=== PATIENT | female | born 1945 | race Caucasian/White ===

== ENCOUNTER → 2017-12-18 08:57 | Outpatient (BNVA) | payer MEDICARE, SELFPAY | PROVIDERS: PCP Family Medicine; Visit Provider Orthopaedic Surgery | DX: M17.0 Bilateral primary osteoarthritis of knee (principal); E11.9 Type 2 diabetes mellitus without complications; Z79.84 Long term (current) use of oral hypoglycemic drugs; I10 Essential (primary) hypertension | CPT/HCPCS: 20610; 99211; 99213; J7325 ==

== ENCOUNTER 2018-03-28 02:12 | Outpatient (CLI) | payer MEDICARE, SELFPAY ==
[2018-03-28 10:52] LABS: Hemoglobin A1C 5.7 % (4.5-6.2)
[2018-03-28 10:53] LABS: ALT 24 U/L (12-78); AST 14 U/L (15-37); Albumin 3.4 g/dL (3.4-5.0); Alkaline Phosphatase 64 U/L (46-116); Anion Gap 8.1 mmol/L (3-11); BUN 15 mg/dL (7-18); Bilirubin, Total 0.3 mg/dL (0.2-1.0); CO2 25.9 mmol/L (21.0-32.0); CREATININE 0.77 mg/dL (0.55-1.02); Calcium 8.6 mg/dL (8.5-10.1); Chloride 109 mmol/L (98-107); Cholesterol 150 mg/dL (50-200); Glucose 96 mg/dL (70-100); HDL Cholesterol 47 mg/dL (40-60); LDL CHOLESTEROL 83 mg/dL (<100); Potassium 4.5 mmol/L (3.5-5.1); Sodium 143 mmol/L (136-145); Total Protein 6.3 g/dL (6.4-8.2); Triglyceride 116 mg/dL (30-150)
[2018-03-28 11:00] LABS: Abs Immature Grans 0.01 k/cumm (0.0-0.09); Absolute Basophil Count 0.02 k/cumm (0.0-0.2); Absolute Eosinophil Count 0.16 k/cumm (0.0-0.7); Absolute Lymphocyte Count 1.21 k/cumm (1.2-3.4); Absolute Monocyte Count 0.42 k/cumm (0.11-0.7); Absolute Neutrophil Count 3.18 k/cumm (1.2-6.7); Basophils % 0.4; Eosinophils % 3.2; HCT 37.5 % (36.0-46.0); HGB 12.1 g/dL (12.0-15.5); Immature Grans % 0.2; Lymphocytes % 24.2; Mean Corp. HGB Concentration 32.3 g/dL (32.0-36.0); Mean Corpuscular Hemoglobin 31.8 pg (27.0-33.0); Mean Corpuscular Volume 98.4 fL (80-95); Mean Platelet Volume 10.4 fL (8.0-11.0); Monocytes % 8.4; Neutrophils % 63.6; Platelet Count 225 x1000/uL (130-400); RBC 3.81 m/cumm (4.00-5.20); RBC Distribution Width 12.8 % (11.7-14.6)
[2018-03-28 13:36] LABS: COMMENT (LAB VIEW ONLY) 66.85 mg/dL; Microalb ug/mg Crea 15.1 ug/mg Cr
== END 2018-03-28 02:32 ==
PROVIDERS: PCP Family Medicine; Visit Provider Family Medicine
DX: E11.9 Type 2 diabetes mellitus without complications (principal); I10 Essential (primary) hypertension; E78.5 Hyperlipidemia, unspecified
CPT/HCPCS: 36415; 80053; 80061; 83721; 82043; 82570; 83036; 85025

== ENCOUNTER 2018-05-14 13:13 | Outpatient (REF) | payer MEDICARE, SELFPAY | END 2018-05-14 13:33 | LOC: LBN 13:13 | PROVIDERS: PCP Family Medicine; Visit Provider Family Medicine | DX: B08.4 Enteroviral vesicular stomatitis with exanthem (principal) | CPT/HCPCS: 87070; 87205 ==

== ENCOUNTER 2018-05-18 23:12 | Emergency (ER) | payer MEDICARE, SELFPAY ==
[2018-05-18 23:16] VITALS: BP 171/66; PULSE 54; RESP 16; TEMP 36.9; O2SAT 91
--- NOTE | 2018-05-18 23:43 | W.ED.GENAD ---
Discharge Plan Disposition Patient Disposition: HOME Condition: Good Discharge Details Chief Complaint: Recheck Clinical Impression: Encounter for wound re-check Primary Care Provider: Akhil London ED Provider: Emmanuel Ruth Meds and New Rx's Prescriptions: Continued Adult Probiotic 3 billion cell capsule 3,000 mmu cells PO DAILY RF: 0 lisinopril 20 mg tablet 20 mg PO BID Qty: 180 RF: 4 ranitidine HCl [Zantac Maximum Strength] 150 mg tablet 300 mg PO QPM Qty: 60 RF: 11 sertraline 50 mg tablet 50 mg PO DAILY Qty: 90 RF: 4 omeprazole 40 mg capsule,delayed release(DR/EC) 40 mg PO QAM Qty: 90 RF: 3 clindamycin HCl 150 mg capsule 150 mg PO TID Qty: 21 RF: 0 triamcinolone acetonide 15 GM cream 1 applic Topical BID PRN Qty: 15 RF: 1 topiramate 100 MG tablet 100 mg PO BID Qty: 180 RF: 3 levothyroxine 75 MCG tablet 75 mcg PO as directed Qty: 40 RF: 4 levothyroxine 88 MCG tablet 88 mcg PO as directed Qty: 70 RF: 4 Blood Glucose Test 1 EACH strip 1 ea Miscellaneous DAILY MDD 1 Qty: 100 RF: 12 lancets 1 EACH misc 1 ea Miscellaneous DAILY Qty: 100 RF: 12 levetiracetam 1,000 mg tablet 2,000 mg PO BID Qty: 360 RF: 3 metformin 500 mg tablet 500 mg PO BID Qty: 180 RF: 4 simvastatin 20 mg tablet 20 mg PO HS Qty: 90 RF: 4 Discharge Instructions Additional Instructions: Your wound looks well. It is not infected. It is healing appropriately. You do not need to continue packing unless you want to. Continue to clean twice a day and keep covered. Follow-up with primary care next week. Return if any problems. Referrals: Akhil London [Primary Care Provider] - Medical Decision Making Here for wound check. Everything looks fine. At this point would not even bother with packing. Dressing applied and patient discharged. HPI General Mode of arrival: ambulatory. Date/Time Provider Initiated Documentation: 05/18/18 23:23. Limitations to Documentation: no limitations. Information obtained by: patient. HPI Narrative: Patient here for wound check. Patient reports having an abscess in her buttocks drained by primary care earlier this week. She had a wound check Sunday. This morning and this evening there was some green discharge and bleeding and her daughter was concerned and had her come in for evaluation. She states that she is feeling well. It is not painful or bothering her. There has been no fever. Related Data Home Medications Medication Instructions Recorded Confirmed triamcinolone acetonide 1 applic TOPICAL BID PRN #15 gm 08/15/12 05/18/18 topiramate 100 mg PO BID #180 tab-cap 05/17/17 05/18/18 levothyroxine 75 mcg PO as directed #40 tab-cap 05/22/17 05/18/18 levothyroxine 88 mcg PO as directed #70 tab-cap 05/22/17 05/18/18 Blood Glucose Test #100 strip 06/11/17 05/17/18 lancets #100 ea 06/11/17 05/17/18 levetiracetam 1,000 mg tablet 2,000 mg PO BID #360 tab 01/31/18 05/18/18 metformin 500 mg tablet 500 mg PO BID #180 tab-cap 02/06/18 05/18/18 simvastatin 20 mg tablet 20 mg PO HS #90 tab-cap 02/06/18 05/18/18 lactobacillus combination no.8 3 3,000 mmu cells PO DAILY 03/26/18 05/18/18 billion cell capsule lisinopril 20 mg tablet 20 mg PO BID #180 tab-cap 03/26/18 05/18/18 omeprazole 40 mg capsule,delayed 40 mg PO QAM #90 tab-cap 03/26/18 05/18/18 release ranitidine 150 mg tablet 300 mg PO QPM #60 tab 03/26/18 05/18/18 sertraline 50 mg tablet 50 mg PO DAILY #90 tab-cap 03/26/18 05/18/18 clindamycin HCl 150 mg capsule 150 mg PO TID #21 cap 05/14/18 05/18/18 Previous Rx's Medication Instructions Recorded topiramate 100 mg PO BID #180 tab-cap 05/17/17 levothyroxine 75 mcg PO as directed #40 tab-cap 05/22/17 levothyroxine 88 mcg PO as directed #70 tab-cap 05/22/17 Blood Glucose Test #100 strip 06/11/17 lancets #100 ea 06/11/17 levetiracetam 1,000 mg tablet 2,000 mg PO BID #360 tab 01/31/18 metformin 500 mg tablet 500 mg PO BID #180 tab-cap 02/06/18 simvastatin 20 mg tablet 20 mg PO HS #90 tab-cap 02/06/18 lisinopril 20 mg tablet 20 mg PO BID #180 tab-cap 03/26/18 omeprazole 40 mg capsule,delayed 40 mg PO QAM #90 tab-cap 03/26/18 release ranitidine 150 mg tablet 300 mg PO QPM #60 tab 03/26/18 sertraline 50 mg tablet 50 mg PO DAILY #90 tab-cap 03/26/18 clindamycin HCl 150 mg capsule 150 mg PO TID #21 cap 05/14/18 Allergies Allergy/AdvReac Type Severity Reaction Status Date / Time codeine Allergy Mild HIVES Unverified 05/18/18 23:19 phenobarbital Allergy Mild itch/hives Unverified 05/18/18 23:19 Sulfa (Sulfonamide Allergy Mild HIVES Unverified 05/18/18 23:19 Antibiotics) General Stated Complaint: Recheck ANTONIA: 5 Review of Systems Constitutional Denies chills and Denies fever(s) Integumentary/Breasts Denies erythema and Reports wounds [facility] Medical History Absence seizure disorder Cataract Diabetes GERD (gastroesophageal reflux disease) Heart murmur, systolic Hx of breast cancer Hyperlipidemia Hypertension Hypertensive retinopathy Hypothyroidism Obesity Surgical History Breast, Mastectomy (~10/2006) EGD - IV Sedation EGD - MAC (12/04/16) Open Carpal Tunnel release (~06/2017) Trigger Finger release (09/21/15) Social History Smoking/Tobacco Use Status: Never Second Hand Exposure: Yes Alcohol Intake: never Drug use: Never Substance use type: does not use Caregiver/Support person: No Household members: children and other Details: Grandchildren Housing: house Pets and animals: Yes Pets and animals: other Details: Rabbit Sexually active: No Do you think of yourself as: straight/heterosexual Current gender identity: female What is your relationship status?: How often do you talk on the phone with friends or family?: three or more times per week How often do you get together with friends or relatives?: twice per week How often do you attend faith or yarsanism services?: decline to answer Do you belong to any clubs or organized social groups?: no Panel score (0-1 are the most socially isolated patients): 1 Frequency: does not exercise Christiana/Scientologist: Episcopal Special christiana needs: No Do you feel safe in your relationship?: Yes Exam Const General: cooperative and no acute distress Orientation: alert and oriented x3 Skin Other: Very small, less than half centimeter, shallow incision in the right upper buttock. There is no drainage. The tissue within the wound is completely clean. There is no sign of infection. Course Vital Signs Temperature 98.4 F 05/18/18 23:16 Pulse 54 L 05/18/18 23:16 Respiratory Rate 16 05/18/18 23:16 Blood Pressure 171/66 H 05/18/18 23:16 Pulse Oximetry 91 L 05/18/18 23:16 Temperature 98.4 F 05/18/18 23:16 Temperature Source Skin 05/18/18 23:16 Pulse 54 L 05/18/18 23:16 Respiratory Rate 16 05/18/18 23:16 Respiratory Effort Non-Labored 05/18/18 23:18 Blood Pressure 171/66 H 05/18/18 23:16 Pulse Oximetry 91 L 05/18/18 23:16 Oxygen Delivery Method Room Air 05/18/18 23:16 Oxygen Flow Rate 0 05/18/18 23:16 Pain Level 0 05/18/18 23:16
--- NOTE | 2018-05-18 23:59 | ED.GENADUL_ITS ---
Discharge Plan Disposition Patient Disposition: HOME Condition: Good Discharge Details Chief Complaint: Recheck Clinical Impression: Encounter for wound re-check Primary Care Provider: Akhil London ED Provider: Emmanuel Ruth Meds and New Rx's Prescriptions: Continued Adult Probiotic 3 billion cell capsule 3,000 mmu cells PO DAILY RF: 0 lisinopril 20 mg tablet 20 mg PO BID Qty: 180 RF: 4 ranitidine HCl [Zantac Maximum Strength] 150 mg tablet 300 mg PO QPM Qty: 60 RF: 11 sertraline 50 mg tablet 50 mg PO DAILY Qty: 90 RF: 4 omeprazole 40 mg capsule,delayed release(DR/EC) 40 mg PO QAM Qty: 90 RF: 3 clindamycin HCl 150 mg capsule 150 mg PO TID Qty: 21 RF: 0 triamcinolone acetonide 15 GM cream 1 applic Topical BID PRN Qty: 15 RF: 1 topiramate 100 MG tablet 100 mg PO BID Qty: 180 RF: 3 levothyroxine 75 MCG tablet 75 mcg PO as directed Qty: 40 RF: 4 levothyroxine 88 MCG tablet 88 mcg PO as directed Qty: 70 RF: 4 Blood Glucose Test 1 EACH strip 1 ea Miscellaneous DAILY MDD 1 Qty: 100 RF: 12 lancets 1 EACH misc 1 ea Miscellaneous DAILY Qty: 100 RF: 12 levetiracetam 1,000 mg tablet 2,000 mg PO BID Qty: 360 RF: 3 metformin 500 mg tablet 500 mg PO BID Qty: 180 RF: 4 simvastatin 20 mg tablet 20 mg PO HS Qty: 90 RF: 4 Discharge Instructions Additional Instructions: Your wound looks well. It is not infected. It is healing appropriately. You do not need to continue packing unless you want to. Continue to clean twice a day and keep covered. Follow-up with primary care next week. Return if any problems. Referrals: Akhil London [Primary Care Provider] - Medical Decision Making Here for wound check. Everything looks fine. At this point would not even bother with packing. Dressing applied and patient discharged. HPI General Mode of arrival: ambulatory . Date/Time Provider Initiated Documentation: 05/18/18 23:23 . Limitations to Documentation: no limitations . Information obtained by: patient . HPI Narrative: Patient here for wound check. Patient reports having an abscess in her buttocks drained by primary care earlier this week. She had a wound check Sunday. This morning and this evening there was some green discharge and bleeding and her daughter was concerned and had her come in for evaluation. She states that she is feeling well. It is not painful or bothering her. There has been no fever. Related Data Home Medications Medication Instructions Recorded Confirmed triamcinolone acetonide 1 applic TOPICAL BID PRN #15 gm 08/15/12 05/18/18 topiramate 100 mg PO BID #180 tab-cap 05/17/17 05/18/18 levothyroxine 75 mcg PO as directed #40 tab-cap 05/22/17 05/18/18 levothyroxine 88 mcg PO as directed #70 tab-cap 05/22/17 05/18/18 Blood Glucose Test #100 strip 06/11/17 05/17/18 lancets #100 ea 06/11/17 05/17/18 levetiracetam 1,000 mg tablet 2,000 mg PO BID #360 tab 01/31/18 05/18/18 metformin 500 mg tablet 500 mg PO BID #180 tab-cap 02/06/18 05/18/18 simvastatin 20 mg tablet 20 mg PO HS #90 tab-cap 02/06/18 05/18/18 lactobacillus combination no.8 3 3,000 mmu cells PO DAILY 03/26/18 05/18/18 billion cell capsule lisinopril 20 mg tablet 20 mg PO BID #180 tab-cap 03/26/18 05/18/18 omeprazole 40 mg capsule,delayed 40 mg PO QAM #90 tab-cap 03/26/18 05/18/18 release ranitidine 150 mg tablet 300 mg PO QPM #60 tab 03/26/18 05/18/18 sertraline 50 mg tablet 50 mg PO DAILY #90 tab-cap 03/26/18 05/18/18 clindamycin HCl 150 mg capsule 150 mg PO TID #21 cap 05/14/18 05/18/18 Previous Rx's Medication Instructions Recorded topiramate 100 mg PO BID #180 tab-cap 05/17/17 levothyroxine 75 mcg PO as directed #40 tab-cap 05/22/17 levothyroxine 88 mcg PO as directed #70 tab-cap 05/22/17 Blood Glucose Test #100 strip 06/11/17 lancets #100 ea 06/11/17 levetiracetam 1,000 mg tablet 2,000 mg PO BID #360 tab 01/31/18 metformin 500 mg tablet 500 mg PO BID #180 tab-cap 02/06/18 simvastatin 20 mg tablet 20 mg PO HS #90 tab-cap 02/06/18 lisinopril 20 mg tablet 20 mg PO BID #180 tab-cap 03/26/18 omeprazole 40 mg capsule,delayed 40 mg PO QAM #90 tab-cap 03/26/18 release ranitidine 150 mg tablet 300 mg PO QPM #60 tab 03/26/18 sertraline 50 mg tablet 50 mg PO DAILY #90 tab-cap 03/26/18 clindamycin HCl 150 mg capsule 150 mg PO TID #21 cap 05/14/18 Allergies Allergy/AdvReac Type Severity Reaction Status Date / Time codeine Allergy Mild HIVES Unverified 05/18/18 23:19 phenobarbital Allergy Mild itch/hives Unverified 05/18/18 23:19 Sulfa (Sulfonamide Allergy Mild HIVES Unverified 05/18/18 23:19 Antibiotics) General Stated Complaint: Recheck ANTONIA: 5 Review of Systems Constitutional Denies chills and Denies fever(s) Integumentary/Breasts Denies erythema and Reports wounds [facility] Medical History Absence seizure disorder Cataract Diabetes GERD (gastroesophageal reflux disease) Heart murmur, systolic Hx of breast cancer Hyperlipidemia Hypertension Hypertensive retinopathy Hypothyroidism Obesity Surgical History Breast, Mastectomy (~10/2006) EGD - IV Sedation EGD - MAC (12/04/16) Open Carpal Tunnel release (~06/2017) Trigger Finger release (09/21/15) Social History Smoking/Tobacco Use Status: Never Second Hand Exposure: Yes Alcohol Intake: never Drug use: Never Substance use type: does not use Caregiver/Support person: No Household members: children and other Details: Grandchildren Housing: house Pets and animals: Yes Pets and animals: other Details: Rabbit Sexually active: No Do you think of yourself as: straight/heterosexual Current gender identity: female What is your relationship status?: How often do you talk on the phone with friends or family?: three or more times per week How often do you get together with friends or relatives?: twice per week How often do you attend sabianism or jewish services?: decline to answer Do you belong to any clubs or organized social groups?: no Panel score (0-1 are the most socially isolated patients): 1 Frequency: does not exercise Christiana/Rastafari: Church Special christiana needs: No Do you feel safe in your relationship?: Yes Exam Const General: cooperative and no acute distress Orientation: alert and oriented x3 Skin Other: Very small, less than half centimeter, shallow incision in the right upper buttock. There is no drainage. The tissue within the wound is completely clean. There is no sign of infection. Course Vital Signs Temperature 98.4 F 05/18/18 23:16 Pulse 54 L 05/18/18 23:16 Respiratory Rate 16 05/18/18 23:16 Blood Pressure 171/66 H 05/18/18 23:16 Pulse Oximetry 91 L 05/18/18 23:16 Temperature 98.4 F 05/18/18 23:16 Temperature Source Skin 05/18/18 23:16 Pulse 54 L 05/18/18 23:16 Respiratory Rate 16 05/18/18 23:16 Respiratory Effort Non-Labored 05/18/18 23:18 Blood Pressure 171/66 H 05/18/18 23:16 Pulse Oximetry 91 L 05/18/18 23:16 Oxygen Delivery Method Room Air 05/18/18 23:16 Oxygen Flow Rate 0 05/18/18 23:16 Pain Level 0 05/18/18 23:16
== END 2018-05-18 23:52 | disposition home or self-care (01) ==
LOC: ER 23:49
PROVIDERS: Emergency Provider Emergency Medicine; PCP Family Medicine
DX: L02.31 Cutaneous abscess of buttock (principal); I10 Essential (primary) hypertension; E11.9 Type 2 diabetes mellitus without complications; Z79.84 Long term (current) use of oral hypoglycemic drugs
CPT/HCPCS: 99281

== ENCOUNTER → 2018-06-18 09:33 | Outpatient (BNVA) | payer MEDICARE, SELFPAY | PROVIDERS: PCP Family Medicine; Referring Provider Family Medicine; Visit Provider Orthopaedic Surgery | DX: M17.11 Unilateral primary osteoarthritis, right knee (principal); M17.12 Unilateral primary osteoarthritis, left knee; G56.02 Carpal tunnel syndrome, left upper limb; I10 Essential (primary) hypertension | CPT/HCPCS: 20610; 99211; 99212; J7325 ==

== ENCOUNTER → 2018-08-21 12:05 | Outpatient (BNVA) | payer MEDICARE, SELFPAY | PROVIDERS: PCP Family Medicine; Visit Provider Psychiatry & Neurology Neurology | DX: G40.109 Localization-related (focal) (partial) symptomatic epilepsy and epileptic syndromes with simple partial seizures, not intractable, without status epilepticus (principal); I10 Essential (primary) hypertension; E11.9 Type 2 diabetes mellitus without complications; Z79.84 Long term (current) use of oral hypoglycemic drugs | CPT/HCPCS: 99213 ==

== ENCOUNTER 2018-08-27 11:47 | Day surgery (SDC) | payer MEDICARE, SELFPAY ==
[2018-08-27 12:20] VITALS: BP 122/64; PULSE 57; RESP 16; TEMP 36.4; O2SAT 99
[2018-08-27] MEDS: Lidocaine 2% Multi-Dose 50 ML VIAL (12:50)
--- NOTE | 2018-08-27 13:31 | PDOC.DSDIS_ITS ---
Discharge Plan Disposition Patient Disposition: HOME Condition: Improving Discharge Details Reason For Visit: (L) CTS Attending Provider: Almas Laws Primary Care Provider: Akhil London Home Meds and New Rx's Prescriptions: New hydrocodone-acetaminophen 5-325 mg Tablet 1 - 2 tab PO Q4H PRN PRN (Reason: Pain) Qty: 18 RF: 0 No Action Adult Probiotic 3 billion cell capsule 3,000 mmu cells PO DAILY RF: 0 lisinopril 20 mg tablet 20 mg PO BID Qty: 180 RF: 4 ranitidine HCl [Zantac Maximum Strength] 150 mg tablet 300 mg PO QPM Qty: 60 RF: 11 sertraline 50 mg tablet 50 mg PO DAILY Qty: 90 RF: 4 omeprazole 40 mg capsule,delayed release(DR/EC) 40 mg PO QAM Qty: 90 RF: 3 triamcinolone acetonide 15 GM cream 1 applic Topical BID PRN Qty: 15 RF: 1 (DME) Blood Glucose Test 1 EACH strip 1 ea Miscellaneous DAILY MDD 1 Qty: 100 RF: 12 (DME) lancets 1 EACH misc 1 ea Miscellaneous DAILY Qty: 100 RF: 12 levetiracetam 1,000 mg tablet 2,000 mg PO BID Qty: 360 RF: 3 metformin 500 mg tablet 500 mg PO BID Qty: 180 RF: 4 simvastatin 20 mg tablet 20 mg PO HS Qty: 90 RF: 4 levothyroxine 88 mcg tablet 88 mcg PO as directed Qty: 70 RF: 4 levothyroxine 75 mcg tablet 75 mcg PO as directed Qty: 40 RF: 4 topiramate 100 mg tablet 100 mg PO BID Qty: 180 RF: 3 Discharge Instructions Additional Instructions: Keep your left hand elevated above heart level as much as possible for the next 48-72 hours. Exercise your fingers and thumb as comfort allows. You may loosen the wrist splint and/or the underlying lorene bandage if they feel too tight. Expect some bloody drainage on the underlying gauze bandages. Use a plastic bag to cover the splint and forearm for showering tomorrow. On , 08/29/18, you may remove all of your bandages and get your incision wet in the shower with soap and water. Gently pat the stitches dry and cover them with gauze or extra- large bandaids. Continue to use your hand as comfort allows. You may go without your wrist splint after , 08/29/18 if you are comfortable. Take your regular medications as before. Take tylenol or ibuprofen for milder pain. Tylenol may be taken at the same time as ibuproben as they are metabolized ddifferently and are not cross toxic. Take norco (hydrocodone 5/325mg 1-2 every 4 hours for more serious pain. Follow-up with Dr. Laws in 1 week for stitch removal. Stand Alone Forms: Eneida Bond (DSU) Equipment/Supplies: Brace Activity:: Elevate Remove Dressings/Wound Care:: 48 hours Shower/Bathe:: 48 hours Diet:: As Tolerated Discharge Orders Discharge Orders: Discharge Order (Routine); Ordered 08/27/18 Ordered By: Almas Laws DS: Diagnosis Discharge Diagnosis (1) Carpal tunnel syndrome of left wrist: Status: Acute
--- NOTE | 2018-08-27 14:27 | ROE_ITS ---
DATE OF PROCEDURE: August 27, 2018 PREOPERATIVE DIAGNOSIS: Chronic left carpal tunnel syndrome. POSTOPERATIVE DIAGNOSIS: Same. PROCEDURE: Left open carpal tunnel release. SURGEON: Almas Laws M.D. FITTER'S ASSISTANT: Dann. ANESTHETIC: 2% Lidocaine plain. PREP: ChloraPrep. INDICATIONS: This patient has had symptoms of bilateral carpal tunnel syndrome. She underwent succe ssful right open carpal tunnel release. She returns now to have the left side treated. I reviewed w ith the patient in the Day Surgery holding area the planned procedure, which she was well-versed in. She consented and wished to proceed. I used a skin marker to tono her left forearm. PROCEDURE: The patient was taken to the procedure room. Sterile drapes were applied after her left upper extremity was prepped with ChloraPrep. A time-out was instituted to verify the patient's diagn osis, treatment and allergies. 2% Lidocaine was then used to create an anesthetic wheal along the co urse of the universal carpal tunnel incision. This was an incision that began in the distal forearm, curved across the wrist flexion crease in an oblique angle, and then followed the ring finger ray. After ensuring adequate anesthesia, a #15 scalpel blade was utilized to expose the carpal tunnel. Lo upe magnification was used throughout the procedure. Hemostasis was controlled with direct pressure. After incising through the skin and underlying subcutaneous tissues, the palmar fascia was identifi ed. Heiss retractors were inserted. Under direct vision the transverse carpal ligament was incised after first incising through the palmar fascia. A complete release was done from the distal extent o f the antebrachial fascia to the distal extent of the transverse carpal ligament. Care was taken to avoid any injury to the arterial arcade. The patient was then asked to flex and extend her fingers a nd there was no evidence of any loose bodies, foreign bodies or encumbrances on the median nerve. Th e median nerve itself had a characteristic hourglass constriction in the mid portion of the transvers e carpal ligament where it was making contact with it. The wound was then irrigated. The skin was c losed with sutures of #5-0 Ethilon alternating simple sutures with [id number] retention suture s. Sterile bandages were applied. These consisted of Xeroform gauze 4x4's, 3-inch conforming gauze bandage, followed by a 3-brooks REAGAN wrap and a commercial wrist immobilizer. The patient was taken to the recovery room in satisfactory condition, tolerating the procedure well.
== END 2018-08-27 14:05 | disposition home or self-care (01) ==
PROVIDERS: PCP Family Medicine; Visit Provider Orthopaedic Surgery
PROC: (CPT 64721; principal; 2018-08-27 12:30)
DX: G56.02 Carpal tunnel syndrome, left upper limb (principal)
CPT/HCPCS: 64721; L3908

== ENCOUNTER → 2018-09-04 07:40 | Outpatient (BNVA) | payer MEDICARE, SELFPAY | PROVIDERS: PCP Family Medicine; Referring Provider Family Medicine; Visit Provider Orthopaedic Surgery | DX: Z47.89 Encounter for other orthopedic aftercare (principal); Z87.39 Personal history of other diseases of the musculoskeletal system and connective tissue; I10 Essential (primary) hypertension; E11.9 Type 2 diabetes mellitus without complications ==

== ENCOUNTER 2018-10-02 01:45 | Outpatient (CLI) | payer MEDICARE, SELFPAY ==
[2018-10-02 12:55] LABS: BUN 10 mg/dL (7-18); CREATININE 0.74 mg/dL (0.55-1.02); Calcium 8.4 mg/dL (8.5-10.1); Chloride 109 mmol/L (98-107); Glucose 107 mg/dL (70-100); Potassium 3.9 mmol/L (3.5-5.1); Sodium 144 mmol/L (136-145)
[2018-10-02 13:36] LABS: Hemoglobin A1C 5.4 % (4.5-6.2)
== END 2018-10-02 02:05 ==
PROVIDERS: PCP Family Medicine; Visit Provider Family Medicine
DX: E11.9 Type 2 diabetes mellitus without complications (principal)
CPT/HCPCS: 36415; 80048; 83036

== ENCOUNTER → 2019-01-13 10:54 | Outpatient (BNVA) | payer MEDICARE, SELFPAY | PROVIDERS: PCP Family Medicine; Referring Provider Family Medicine; Visit Provider Student in an Organized Health Care Education/Training Program | DX: M17.11 Unilateral primary osteoarthritis, right knee (principal); M17.12 Unilateral primary osteoarthritis, left knee; M65.321 Trigger finger, right index finger; I10 Essential (primary) hypertension; E11.319 Type 2 diabetes mellitus with unspecified diabetic retinopathy without macular edema; Z79.84 Long term (current) use of oral hypoglycemic drugs | CPT/HCPCS: 20610; 99213; J7325 ==

== ENCOUNTER 2019-02-03 19:42 | Outpatient (REF) | payer MEDICARE, SELFPAY ==
[2019-02-03 19:25] LABS: Bilirubin Negative (Negative); Blood Trace-intact (Negative); Clarity Cloudy (Clear); Glucose Negative (Negative); Ketones Negative (Negative); Leukocyte Esterase Moderate (Negative); Nitrite Negative (Negative)
[2019-02-03 19:37] LABS: Bacteria Many HPF (Negative); C & S Indicated? C&S Done As Ordered; Casts Negative LPF (Negative); Crystals Negative HPF (Negative); Epithelial Cells Moderate HPF (Negative); Mucus Negative (Negative); RBC >50 HPF (0-2); WBC >50 HPF (0-5)
== END 2019-02-03 20:02 ==
LOC: LBN 19:42
PROVIDERS: PCP Family Medicine; Visit Provider Family Medicine
DX: R39.15 Urgency of urination (principal)
CPT/HCPCS: 87077; 81003; 81015; 87086; 87186

== ENCOUNTER 2019-03-31 03:34 | Outpatient (CLI) | payer MEDICARE, SELFPAY ==
[2019-03-31 11:24] LABS: ALT 17 U/L (14-59); AST 15 U/L (15-37); Albumin 3.7 g/dL (3.4-5.0); Alkaline Phosphatase 62 U/L (46-116); Anion Gap 10.4 mmol/L (3-11); BUN 14 mg/dL (7-18); Bilirubin, Total 0.4 mg/dL (0.2-1.0); CO2 24.6 mmol/L (21.0-32.0); CREATININE 0.61 mg/dL (0.55-1.02); Calcium 8.5 mg/dL (8.5-10.1); Chloride 108 mmol/L (98-107); Glucose 94 mg/dL (74-106); Potassium 3.9 mmol/L (3.5-5.1); Sodium 143 mmol/L (136-145); Total Protein 6.3 g/dL (6.4-8.2); Vitamin B12 520 pg/mL (193-986)
[2019-03-31 12:23] LABS: TSH 0.15 uIU/mL (0.36-3.74)
[2019-03-31 12:59] LABS: Hemoglobin A1C 5.7 % (3.8-5.6)
== END 2019-03-31 03:54 ==
PROVIDERS: PCP Family Medicine; Visit Provider Family Medicine
DX: E03.9 Hypothyroidism, unspecified (principal); E11.9 Type 2 diabetes mellitus without complications; E87.1 Hypo-osmolality and hyponatremia
CPT/HCPCS: 36415; 80053; 82607; 83036; 84443

== ENCOUNTER 2019-04-11 01:57 | Outpatient (CLI) | payer MEDICARE, SELFPAY ==
[2019-04-11 11:09] LABS: TSH 0.24 uIU/mL (0.36-3.74)
== END 2019-04-11 02:17 ==
PROVIDERS: PCP Family Medicine; Visit Provider Family Medicine
DX: E03.9 Hypothyroidism, unspecified (principal)
CPT/HCPCS: 36415; 84443

== ENCOUNTER 2019-04-17 01:45 | Outpatient (CLI) | payer MEDICARE, SELFPAY ==
--- NOTE | 2019-04-17 12:51 | DI.MAMMO_ITS ---
EXAM: MG MAMMO SCREENING 60 MIN DUR CLINICAL HISTORY: PERSONAL H/O MALIGNANT NEOPLASM OF BREAST,BREAST CA SCREENING,Z85.3, Z12.31 TECHNIQUE: Bilateral full field digital CC and MLO mammographic images were obtained with 3D tomosyn thesis and utilizing computer aided detection (CAD). COMPARISON: Available for comparison. FINDINGS: Masses/Architectural Distortion: None seen. Microcalcifications: No suspicious pleomorphic-type are seen. Skin Thickening/Nipple Retraction: None. IMPRESSION: 1. No significant interval change with no specific features of malignancy noted. 2. Unless there is more urgent need, screening mammography is recommended, as per [place] [employer] guidelines. BI-RADS Cat 1 - Negative Breast Density - Category B - Scattered areas of fibroglandular density A negative radiographic report should not delay biopsy if a dominant or clinically suspicious mass is present. Up to ten percent of cancers are not identified on mammography. A negative report may reinforce clinical impression. Adenosis and dense breasts may obscure an underlying neoplasm. False positive reports average 6 to 10%. Patient will receive a letter notifying them of these results.
== END 2019-04-17 02:05 ==
PROVIDERS: PCP Family Medicine; Visit Provider Family Medicine
DX: Z12.31 Encounter for screening mammogram for malignant neoplasm of breast (principal); Z85.3 Personal history of malignant neoplasm of breast
CPT/HCPCS: 77063; 77067

== ENCOUNTER → 2019-07-14 08:19 | Outpatient (BNVA) | payer MEDICARE, SELFPAY | PROVIDERS: PCP Family Medicine; Referring Provider Family Medicine; Visit Provider Student in an Organized Health Care Education/Training Program | DX: M17.0 Bilateral primary osteoarthritis of knee (principal) | CPT/HCPCS: 99212; 99213 ==

== ENCOUNTER 2019-08-01 03:56 | Outpatient (CLI) | payer MEDICARE, SELFPAY ==
[2019-08-01 11:36] LABS: Hemoglobin A1C 5.8 % (3.8-5.6)
[2019-08-01 11:40] LABS: TSH 1.83 uIU/mL (0.36-3.74)
== END 2019-08-01 04:16 ==
PROVIDERS: PCP Family Medicine; Visit Provider Family Medicine
DX: E11.9 Type 2 diabetes mellitus without complications (principal); E87.1 Hypo-osmolality and hyponatremia
CPT/HCPCS: 36415; 83036; 84443

== ENCOUNTER → 2019-08-28 14:49 | Outpatient (BNVA) | payer MEDICARE, SELFPAY | PROVIDERS: PCP Family Medicine; Referring Provider Family Medicine; Visit Provider Psychiatry & Neurology Neurology | DX: G40.109 Localization-related (focal) (partial) symptomatic epilepsy and epileptic syndromes with simple partial seizures, not intractable, without status epilepticus (principal); H35.033 Hypertensive retinopathy, bilateral; I10 Essential (primary) hypertension; E11.319 Type 2 diabetes mellitus with unspecified diabetic retinopathy without macular edema; Z79.84 Long term (current) use of oral hypoglycemic drugs | CPT/HCPCS: 99213 ==

== ENCOUNTER → 2020-08-26 11:08 | Outpatient (BNVA) | payer MEDICARE, SELFPAY | PROVIDERS: PCP Nurse Practitioner Family; Referring Provider Family Medicine; Visit Provider Psychiatry & Neurology Neurology | DX: G40.109 Localization-related (focal) (partial) symptomatic epilepsy and epileptic syndromes with simple partial seizures, not intractable, without status epilepticus (principal); I10 Essential (primary) hypertension; E78.5 Hyperlipidemia, unspecified; E11.9 Type 2 diabetes mellitus without complications; K21.9 Gastro-esophageal reflux disease without esophagitis; E03.9 Hypothyroidism, unspecified; Z85.3 Personal history of malignant neoplasm of breast | CPT/HCPCS: 99212 ==

== ENCOUNTER 2021-02-15 03:22 | Outpatient (CLI) | payer MEDICARE, SELFPAY ==
[2021-02-15 08:54] LABS: TSH (W/Ref FT4) 0.88 uIU/mL (0.36-3.74)
[2021-02-15 10:00] LABS: Calculated LDL 99 mg/dL (<100); Cholesterol 176 mg/dL (<200); HDL Cholesterol 55 mg/dL (40-60); Triglyceride 113 mg/dL (<150)
== END 2021-02-15 03:23 | disposition home or self-care (01) ==
LOC: LBO 03:23
PROVIDERS: PCP Nurse Practitioner Family; Visit Provider Nurse Practitioner Family
DX: E78.5 Hyperlipidemia, unspecified; E03.9 Hypothyroidism, unspecified
CPT/HCPCS: 36415; 80061; 84443

== ENCOUNTER → 2021-08-23 11:12 | Outpatient (BNVA) | payer MEDICARE, SELFPAY | PROVIDERS: PCP Nurse Practitioner Family; Referring Provider Nurse Practitioner Family; Visit Provider Psychiatry & Neurology Neurology | DX: E11.9 Type 2 diabetes mellitus without complications (principal); Z79.84 Long term (current) use of oral hypoglycemic drugs; I10 Essential (primary) hypertension; G40.109 Localization-related (focal) (partial) symptomatic epilepsy and epileptic syndromes with simple partial seizures, not intractable, without status epilepticus | CPT/HCPCS: 99213 ==

== ENCOUNTER 2021-09-12 09:46 | Day surgery (SDC) | payer MEDICARE, SELFPAY ==
[2021-09-12 10:18] VITALS: BP 129/62; PULSE 57; RESP 14; TEMP 36.5; O2SAT 99
[2021-09-12] MEDS: Tropicam./Phenyleph. (1/2.5%) 5 ML BTL OS ×3 (10:18→10:28)
--- NOTE | 2021-09-12 10:43 | W.ANESPRE ---
General Info Date of Service Date Performed: 09/12/21 Height: 5 ft 2 in Weight: 70.1 kg Body Mass Index (BMI): 28.3 Surgical Procedure: Operation Date: 09/12/21 12:40 Proposed Procedure Side Surgeon p Cataract Extraction with IOL Implant Left Jc Anthony MD Meds Allergies and Home Medications Allergies Allergy/AdvReac Type Severity Reaction Status Date / Time codeine Allergy Mild HIVES Verified 09/12/21 10:01 phenobarbital Allergy Mild itch/hives Verified 09/12/21 10:01 Sulfa (Sulfonamide Allergy Mild HIVES Verified 09/12/21 10:01 Antibiotics) Home Medication Medication Instructions Recorded blood sugar diagnostic (Accu-Chek #10 ea 09/08/20 Tracy Plus test strips) blood-glucose meter (Accu-Chek #1 ea 09/08/20 Tracy Plus Meter) lancets (Accu-Chek Softclix #100 ea 09/08/20 Lancets) lisinopril 20 mg tablet 20 mg PO DAILY #180 tab-caps 09/15/20 omeprazole 40 mg capsule,delayed 40 mg PO QAM #90 tab-caps 02/09/21 release sertraline 50 mg tablet 50 mg PO DAILY #90 tab-caps 02/09/21 simvastatin 20 mg tablet 20 mg PO HS #90 tab-caps 02/09/21 levothyroxine 50 mcg tablet 50 mcg PO .QOD #45 tabs 04/14/21 levothyroxine 75 mcg tablet 75 mcg PO .qod #45 tab-caps 04/14/21 metformin 500 mg tablet,extended 500 mg PO QPM #90 tabs 06/22/21 release 24 hr topiramate 100 mg tablet See Rx Instructions .Route 07/12/21 .COMPLEX #180 tabs levetiracetam 1,000 mg tablet See Rx Instructions .Route 08/01/21 .COMPLEX #360 tabs Current Visit Medications: Current Medications Generic Name Dose Route Start Last Admin Trade Name Freq PRN Reason Stop Dose Admin Acetaminophen 1,000 mg 09/12/21 06:00 Acetaminophen 500 Mg Tab PO Q4H PRN PRN Miscellaneous Medication 0 ml 09/12/21 06:00 Prednisolone 1%, Moxifloxacin 0.5%, Nepafenac 0.1% 5ml Btl OS DIRECTED SADIE Miscellaneous Medication 0 ml 09/12/21 06:00 09/12/21 10:28 Tropicam./Phenyleph. (1/2.5%) 5 Ml Btl OS 1 drp DIRECTED SADIE Administration Tetracaine HCl 0 ml 09/12/21 06:00 Tetracaine 0.5% 4 Ml Btl OS DIRECTED SADIE PFSH Active Problems Active Problems: Problem Status Onset Code Hyponatremia E87.1 Seizure disorder G40.909 Postprandial abdominal bloating R14.0 Hypokalemia, gastrointestinal losses E87.6 Hypokalemia E87.6 Hypomagnesemia E83.42 Sleep apnea G47.30 Focal epilepsy with impairment of consciousness 06/01/16 G40.109 Heart murmur, systolic 01/20/14 Hypertensive retinopathy of both eyes 10/05/16 H35.033 Malignant neoplasm of female breast 07/12/06 C50.919 Mild cataract of right eye 10/05/16 H26.9 Obesity E66.9 Unspecified dental caries K02.9 Vaginal cyst 08/02/17 N89.8 Primary osteoarthritis of both knees M17.0 Restless legs syndrome (RLS) G25.81 Irritable colon K58.9 Diabetic retinopathy ~09/22/19 E11.319 Cystocele without uterine prolapse N81.10 Diabetes mellitus E11.9 Hyperlipidemia E78.5 Medical History Medical History Carpal tunnel syndrome of left wrist Surgically repaired. Right trigger finger Surgical repair. Medical History Comments:: BP on right side only Surgical History Surgical History Breast, Mastectomy (~10/2006) LEFT EGD - IV Sedation 2014 EGD - MAC (12/04/16) Open Carpal Tunnel release (~06/2017) RIGHT/ Status post carpal tunnel release Status post left mastectomy Per pt. able to use left arm Status post trigger finger release Trigger Finger release (09/21/15) RIGHT THUMB/DR. SCOTT Tobacco Smoking/Tobacco Use Status: Never Passive smoking exposure: Yes Second hand exposure: Yes Alcohol Alcohol Intake: never Substance Use Substance use: Never Substance use type: does not use Vital Signs and Lab Results Vital Signs Most Recent Vital Signs in EMR: Most Recent Vital Signs Temp Pulse Resp BP Pulse Ox 36.5 C 57 L 14 129/62 99 09/12/21 10:18 09/12/21 10:18 09/12/21 10:18 09/12/21 10:18 09/12/21 10:18 Point of Care Results Point of Care Results: Finger Stick Blood Glucose 105 09/12/21 10:25 Lab Results Blood Type / Crossmatch: No Data to Display Complete Blood Count: No Data to Display Complete Metabolic Panel: No Data to Display Liver Function Panel: No Data to Display Coagulation Panel: No Data to Display Cardiac Panel: No Data to Display Arterial Blood Gas: No Data to Display Venous Blood Gas: No Data to Display Pancreas Panel: No Data to Display Thyroid Panel: No Data to Display Infectious Disease: No Data to Display Blood Cultures: No Data to Display Toxicology Panel: No Data to Display Imaging and Studies Imaging and Studies Study information below may be from another EMR and interpreted by another provider. Please see original notes in EMR for more complete details. Echocardiogram Summary: Summary: 1. Left ventricle: The cavity size was normal. Wall thickness was normal. Systolic function was normal. The estimated ejection fraction was 65-70%. Wall motion was normal; there were no regional wall motion abnormalities. 2. Aortic valve: There was no stenosis. Mean gradient: 8.5mm Hg (S). Peak velocity ratio of LVOT to aortic valve: 0.63. 3. Mitral valve: Mild regurgitation. 4. Right ventricle: The cavity size was normal. Wall thickness was normal. Systolic function was normal. 5. Pulmonary arteries: Pulmonary systolic pressure was in the range of 20mm Hg to 30mm Hg. 06/04/14 Anesthesia Assessment and Plan Anesthesia History Personal History: No History of Anesthesia Complications Family History: No Family History of Anesthesia Complications Exercise Tolerance Exercise Tolerance: Metabolic Equivalents<4 Pertinent Negatives Pertinent Negatives: No Symptoms of GERD (Well controlled with meds), No Major Cardiovascular Symptoms or Complaints, No Major Pulmonary Symptoms or Complaints and No History of CVA/TIA Cardiac & Pulmonary Exam Cardiac Exam: Normal S1/S2 Heart Sounds Pulmonary Exam: Clear Bilateral Breath Sounds Implantable Cardiac Device Does patient have a Pacemaker or an ICD?: No Airway Exam Known Difficult Airway: No Mallampati Class: 2 Mouth Opening: Normal (> 3cm) Thyromental Distance: Greater than 3 cm Neck Range of Motion: Full ROM Neck Circumference: Normal Teeth Condition: Generalized Poor Dentition (Minimal teeth. None loose per patient. ) ASA Classification ASA Score: ASA 3 Emergency Case?: No NPO Status NPO Status: NPO Clears >2 hours, Solids >8 hours Anesthesia Plan Resuscitation Status: Full Code Anesthesia Technique: MAC Anesthesia Airway Planned: Natural Airway Monitors Used: Standard Monitors Preoperative Comments:: Hx of petit mall seizures, none for years.
[2021-09-12 10:47] VITALS: BMI 28.3
[2021-09-12] MEDS: Tetracaine 0.5% 4 ML BTL OS (11:18)
[2021-09-12] MEDS: Balanced Salt Soln.-PLUS 500 ML BAG (11:20)
[2021-09-12] MEDS: Duovisc Viscoelastic System EACH 1 EACH (11:21)
[2021-09-12] MEDS: Lidocaine 1% Pres-Free 5 ML VIAL (11:23)
[2021-09-12] MEDS: Lidocaine 2% Jelly 6 ML SYR (11:24)
[2021-09-12] MEDS: Povidone-Iodine Ophth 30 ML BTL (11:26)
[2021-09-12 11:38] VITALS: BP 161/72; PULSE 57; RESP 16; TEMP 36; O2SAT 100
--- NOTE | 2021-09-12 11:39 | W.PM.DSUDISC ---
Discharge Plan Disposition Patient Disposition: HOME Condition: Good Discharge Details Attending Provider: Jc Anthony Primary Care Provider: Aldo Kenney Home Meds and New Rx's Prescriptions: No Action (DME) blood-glucose meter [Accu-Chek Tracy Plus Meter] Misc See Rx Instructions .ROUTE .MEDSUPPLY Qty: 1 0RF Rx Instructions: As directed (DME) Accu-Chek Tracy Plus test strp Strip See Rx Instructions .ROUTE .MEDSUPPLY Qty: 10 0RF Rx Instructions: Daily (DME) lancets [Accu-Chek Softclix Lancets] Misc See Rx Instructions .ROUTE .MEDSUPPLY Qty: 100 0RF Rx Instructions: Daily lisinopril 20 mg tablet 20 mg PO DAILY Qty: 180 4RF omeprazole 40 mg capsule,delayed release(DR/EC) 40 mg PO QAM Qty: 90 3RF sertraline 50 mg tablet 50 mg PO DAILY Qty: 90 4RF Rx Instructions: 1 TAB DAILY simvastatin 20 mg tablet 20 mg PO HS Qty: 90 4RF Rx Instructions: 1 TAB HS levothyroxine 75 mcg tablet 75 mcg PO .qod Qty: 45 3RF Rx Instructions: 75 mcg alternating with 50 mcg levothyroxine. levothyroxine 50 mcg tablet 50 mcg PO .QOD Qty: 45 3RF Rx Instructions: Levothyroxine 75 mcg alternating with 50 mcg daily. Patient currently taking 75 mcg daily-this is a dosage change. metformin 500 mg tablet extended release 24 hr 500 mg PO QPM Qty: 90 0RF topiramate 100 mg tablet See Rx Instructions .ROUTE .COMPLEX Qty: 180 3RF Dose Instruction: TAKE ONE TABLET BY MOUTH TWICE A DAY Rx Instructions: TAKE ONE TABLET BY MOUTH TWICE A DAY levetiracetam 1,000 mg tablet See Rx Instructions .ROUTE .COMPLEX Qty: 360 3RF Dose Instruction: TAKE TWO TABLETS BY MOUTH TWICE A DAY Rx Instructions: TAKE TWO TABLETS BY MOUTH TWICE A DAY Discharge Instructions Stand Alone Forms: Post-op Topical Cataract, Press Ganey (DSU) Discharge Orders Discharge Orders: Discharge Order (Routine); Ordered 09/12/21 Ordered By: Jc Anthony DS: Diagnosis Discharge Diagnosis (1) Nuclear sclerotic cataract of left eye: Status: Resolved (2) Posterior subcapsular age-related cataract of left eye: Status: Resolved
--- NOTE | 2021-09-12 11:41 | W.PM.OP ---
Date of service: 09/12/21 Time of Service: 11:42 Operative Note Operative Note DATE OF PROCEDURE: 09/12/21 PRE-OP DIAGNOSIS: Nuclear/posterior subcapsular cataract, left eye POST-OP DIAGNOSIS: same PROCEDURE: Cataract extraction using phacoemulsification with intraocular lens implant, left eye SURGEON: Jc Anthony ANESTHESIA TYPE: Local By Surgeon and MAC Refer to Anesthesia Record PATHOLOGY: none sent COMPLICATIONS: None Patient was transported to: same day Patient's condition: stable Implants: Manuel [employer] Manuel / [employer] Tecnis [id number] Indications: Progressive decreased vision due to cataract, left eye Procedure Description: CATARACT SURGERY OPERATIVE REPORT PREOPERATIVE DIAGNOSIS: 1. Nuclear/posterior subcapsular cataract, left eye POSTOPERATIVE DIAGNOSIS: Same OPERATION: 1. Cataract extraction using phacoemulsification with posterior chamber intraocular lens implant, left eye. IOL: IOL Can Coverer/Model: Manuel & Manuel / PRAVEENA Tecnis [id number] IOL Power: + 14.5 diopters IOL Serial Number: [id number] Optic Diameter: 6.0 mm Haptic/Overall Diameter: 13.0 mm PHACO INFO: Tucker [employer] Technologiesurion Vision System with OZil and Active Fluidics Cumulative Dispersed Energy (CDE): 13.87 seconds SURGEON: Jc Anthony MD, IHSAN ANESTHESIA: Monitored A [facility] (MAC), with local sub-tenon's anesthetic infiltration COMPLICATIONS: None SPECIMENS: None INDICATIONS FOR PROCEDURE: The patient is a 76-year-old lady with history of myopia who has developed a symptomatic nuclear/posterior subcapsular cataract in the left eye. The option of cataract surgery was offered to the patient and she felt she was symptomatic enough that she wished to proceed. PROCEDURE: The correct surgical eye was identified and marked as the left eye and the pupil was dilated in the preoperative area using mydriatics and cycloplegics. The dilated pupil size was 7.0 mm. The patient elected to proceed without oral sedation. The patient was brought to the operating room where cardiopulmonary monitoring was instituted and surgical time-out was performed, confirming the correct operative eye and IOL power. Topical anesthesia was administered and ophthalmic povidone-iodine 5% was instilled into the conjunctival fornices. Lidocaine gel was applied to the cornea and the micky-ocular area was prepped with Betadine 10% solution and draped in the usual sterile fashion for intraocular surgery, including an aperture drape. A Tegaderm transparent film dressing was cut in half and used to cover the lashes and lid margins. Care was taken to sequester the lashes and lid margins under the Tegaderm dressing. A lid speculum was placed between the lids of the operative eye and the Tucker Lux[employer] Revalia operating microscope was maneuvered into position. Julio scissors were then used to make a conjunctival buttonhole approximately 6mm posterior to the limbus in the inferonasal quadrant. Blunt dissection was carried out to expose bare sclera, and a blunt-tipped sub-tenon?s anesthesia cannula was introduced and passed posteriorly along the globe where non-preserved plain lidocaine was injected into posterior sub-Tenon?s space. A sideport knife was used to make a paracentesis port superiorly/superiortemporally. Intraocular phenylephrine/lidocaine was injected int the anterior chamber.. The anterior chamber was filled with viscoelastic. A keratome knife was used to construct a 2-plane near-clear corneal tunnel extending 2.0mm into clear cornea temporally. A flap was raised on the anterior capsule and capsulorhexis forceps were used to complete a continuous curvilinear capsulorhexis of 5.0 mm. Moderate zonular laxity was noted. Balanced salt solution was then used to perform cortical cleaving hydrodissection and nuclear hydrodelineation until the lens could be freely rotated within the capsular bag. The lens nucleus was then disassembled and removed within the capsular bag and iris plane using phacoemulsification. Residual cortical material was removed using the 45-degree angled silicone I/A tip with 0.3mm port. The posterior capsule was carefully polished to remove as much residual lens epithelial cells as safely possible. The capsular bag was then inflated and the anterior chamber deepened with viscoelastic. The lens implant described above was inserted into the capsular bag using the PRAVEENA [place] Injector. A Kuglen hook was used to dial the IOL into position. Residual viscoelastic was then removed first from posterior to the IOL, then from the anterior chamber using the I/A handpiece. The lens implant was noted to center nicely within the capsular bag. The incisions were stromally hydrated, and the anterior chamber was reformed using BSS. Then 0.5cc of moxifloxacin 1.0mg/ml were injected into the capsular bag and anterior chamber. The incisions were checked with a Weck spear and found to be secure. Several drops of ophthalmic povidone-iodine 5% were then applied to the eye followed by two drops of Imprimis combination prednisolone/moxifloxacin/nepafenac solution. The drapes were removed and a clear plastic protective eye shield was placed over the eye. The patient was then returned to Same Day Surgery in stable condition.
--- NOTE | 2021-09-12 12:02 | W.ANESPOSTOP ---
Postoperative Evaluation Date, Time and Location Date Performed: 09/12/21 Time Performed: 12:03 Patient Location: Day Surgery Unit Vital Signs Most Recent Imported Vital Signs: Most Recent Vital Signs Temp Pulse Resp BP Pulse Ox 36 C L 57 L 16 161/72 H 100 09/12/21 11:38 09/12/21 11:38 09/12/21 11:38 09/12/21 11:38 09/12/21 11:38 Pain Score Most Recent Pain Score: Most Recent Pain Score Pain Level 0 09/12/21 11:38 Assessment Mental Status: Awake (Alert & Oriented to Patient Baseline) Airway and Respiratory Function: Patent airway with normal (patient baseline) respiratory exam Cardiovascular Function: Hemodynamically Stable Hydration Status: Adequately Hydrated Nausea & Vomiting: No Nausea or Vomiting Pain: Pt. Denies Any Pain Peripheral Nerve Block: Patient did not receive a nerve block
== END 2021-09-12 12:03 | disposition home or self-care (01) ==
LOC: SUR 09:46
PROVIDERS: PCP Nurse Practitioner Family; Visit Provider Ophthalmology
PROC: (CPT 66984; principal; 2021-09-12 12:30)
DX: H25.042 Posterior subcapsular polar age-related cataract, left eye (principal); I10 Essential (primary) hypertension; G25.81 Restless legs syndrome; K21.9 Gastro-esophageal reflux disease without esophagitis; G40.909 Epilepsy, unspecified, not intractable, without status epilepticus; E11.9 Type 2 diabetes mellitus without complications; E03.9 Hypothyroidism, unspecified
CPT/HCPCS: 66984; V2632

== ENCOUNTER 2021-09-26 08:46 | Day surgery (SDC) | payer MEDICARE, SELFPAY ==
[2021-09-26 08:51] VITALS: BP 146/66; PULSE 55; RESP 16; TEMP 36.2; O2SAT 100
[2021-09-26] MEDS: Tropicam./Phenyleph. (1/2.5%) 5 ML BTL OD ×3 (09:07→09:21)
--- NOTE | 2021-09-26 09:32 | W.ANESPRE ---
General Info Date of Service Date Performed: 09/26/21 Height: 5 ft 1 in Weight: 70.874 kg Body Mass Index (BMI): 29.5 Surgical Procedure: Operation Date: 09/26/21 11:40 Proposed Procedure Side Surgeon p Cataract Extraction with IOL Implant Right Jc Anthony MD Meds Allergies and Home Medications Allergies Allergy/AdvReac Type Severity Reaction Status Date / Time codeine Allergy Mild HIVES Verified 09/26/21 08:57 phenobarbital Allergy Mild itch/hives Verified 09/26/21 08:57 Sulfa (Sulfonamide Allergy Mild HIVES Verified 09/26/21 08:57 Antibiotics) Home Medication Medication Instructions Recorded blood sugar diagnostic (Accu-Chek #10 ea 09/08/20 Tracy Plus test strips) blood-glucose meter (Accu-Chek #1 ea 09/08/20 Tracy Plus Meter) lancets (Accu-Chek Softclix #100 ea 09/08/20 Lancets) lisinopril 20 mg tablet 20 mg PO DAILY #180 tab-caps 09/15/20 omeprazole 40 mg capsule,delayed 40 mg PO QAM #90 tab-caps 02/09/21 release sertraline 50 mg tablet 50 mg PO DAILY #90 tab-caps 02/09/21 simvastatin 20 mg tablet 20 mg PO HS #90 tab-caps 02/09/21 levothyroxine 50 mcg tablet 50 mcg PO .QOD #45 tabs 04/14/21 levothyroxine 75 mcg tablet 75 mcg PO .qod #45 tab-caps 04/14/21 metformin 500 mg tablet,extended 500 mg PO QPM #90 tabs 06/22/21 release 24 hr topiramate 100 mg tablet See Rx Instructions .Route 07/12/21 .COMPLEX #180 tabs levetiracetam 1,000 mg tablet See Rx Instructions .Route 08/01/21 .COMPLEX #360 tabs Current Visit Medications: Current Medications Generic Name Dose Route Start Last Admin Trade Name Freq PRN Reason Stop Dose Admin Acetaminophen 1,000 mg 09/26/21 06:00 Acetaminophen 500 Mg Tab PO Q4H PRN PRN Miscellaneous Medication 0 ml 09/26/21 06:00 Prednisolone 1%, Moxifloxacin 0.5%, Nepafenac 0.1% 5ml Btl OD DIRECTED SADIE Miscellaneous Medication 0 ml 09/26/21 06:00 09/26/21 09:21 Tropicam./Phenyleph. (1/2.5%) 5 Ml Btl OD 1 drp DIRECTED SADIE Administration Tetracaine HCl 0 ml 09/26/21 06:00 Tetracaine 0.5% 4 Ml Btl OD DIRECTED SADIE PFSH Active Problems Active Problems: Problem Status Onset Code Posterior subcapsular age-related cataract, right eye H25.041 Nuclear sclerotic cataract of right eye H25.11 Essential hypertension I10 Posterior subcapsular age-related cataract of left eye H25.042 Nuclear sclerotic cataract of left eye H25.12 Hyponatremia E87.1 Seizure disorder G40.909 Postprandial abdominal bloating R14.0 Hypokalemia, gastrointestinal losses E87.6 Hypokalemia E87.6 Hypomagnesemia E83.42 Sleep apnea G47.30 Focal epilepsy with impairment of consciousness 06/01/16 G40.109 Heart murmur, systolic 01/20/14 Hypertensive retinopathy of both eyes 10/05/16 H35.033 Malignant neoplasm of female breast 07/12/06 C50.919 Mild cataract of right eye 10/05/16 H26.9 Obesity E66.9 Unspecified dental caries K02.9 Vaginal cyst 08/02/17 N89.8 Primary osteoarthritis of both knees M17.0 Restless legs syndrome (RLS) G25.81 Irritable colon K58.9 Diabetic retinopathy ~09/22/19 E11.319 Cystocele without uterine prolapse N81.10 Diabetes mellitus E11.9 Hyperlipidemia E78.5 Medical History Medical History Carpal tunnel syndrome of left wrist Surgically repaired. Right trigger finger Surgical repair. Medical History Comments:: BP on right side only Surgical History Surgical History Breast, Mastectomy (~10/2006) LEFT EGD - IV Sedation 2014 EGD - MAC (12/04/16) Open Carpal Tunnel release (~06/2017) RIGHT/ Status post carpal tunnel release Status post left mastectomy Per pt. able to use left arm Status post trigger finger release Trigger Finger release (08/09/16) RIGHT THUMB/DR. SCOTT Tobacco Smoking/Tobacco Use Status: Never Passive smoking exposure: Yes Second hand exposure: Yes Alcohol Alcohol Intake: never Substance Use Substance use: Never Substance use type: does not use Vital Signs and Lab Results Vital Signs Most Recent Vital Signs in EMR: Most Recent Vital Signs Temp Pulse Resp BP Pulse Ox 36.2 C L 55 L 16 146/66 H 100 09/26/21 08:51 09/26/21 08:51 09/26/21 08:51 09/26/21 08:51 09/26/21 08:51 Lab Results Blood Type / Crossmatch: No Data to Display Complete Blood Count: No Data to Display Complete Metabolic Panel: No Data to Display Liver Function Panel: No Data to Display Coagulation Panel: No Data to Display Cardiac Panel: No Data to Display Arterial Blood Gas: No Data to Display Venous Blood Gas: No Data to Display Pancreas Panel: No Data to Display Thyroid Panel: No Data to Display Infectious Disease: No Data to Display Blood Cultures: No Data to Display Toxicology Panel: No Data to Display Imaging and Studies Imaging and Studies Study information below may be from another EMR and interpreted by another provider. Please see original notes in EMR for more complete details. Echocardiogram Summary: Summary: 1. Left ventricle: The cavity size was normal. Wall thickness was normal. Systolic function was normal. The estimated ejection fraction was 65-70%. Wall motion was normal; there were no regional wall motion abnormalities. 2. Aortic valve: There was no stenosis. Mean gradient: 8.5mm Hg (S). Peak velocity ratio of LVOT to aortic valve: 0.63. 3. Mitral valve: Mild regurgitation. 4. Right ventricle: The cavity size was normal. Wall thickness was normal. Systolic function was normal. 5. Pulmonary arteries: Pulmonary systolic pressure was in the range of 20mm Hg to 30mm Hg. 06/04/14 Anesthesia Assessment and Plan Anesthesia History Personal History: No History of Anesthesia Complications Family History: No Family History of Anesthesia Complications Exercise Tolerance Exercise Tolerance: Metabolic Equivalents<4 Pertinent Negatives Pertinent Negatives: No Symptoms of GERD (Rx. Meds) Cardiac & Pulmonary Exam Cardiac Exam: Normal S1/S2 Heart Sounds Pulmonary Exam: Clear Bilateral Breath Sounds Implantable Cardiac Device Does patient have a Pacemaker or an ICD?: No Airway Exam Known Difficult Airway: No Mallampati Class: 2 Mouth Opening: Normal (> 3cm) Thyromental Distance: Greater than 3 cm Neck Range of Motion: Full ROM Neck Circumference: Normal Teeth Condition: Generalized Poor Dentition (Minimal teeth. None loose per patient. ) ASA Classification ASA Score: ASA 3 Emergency Case?: No NPO Status NPO Status: NPO Clears >2 hours, Solids >8 hours Anesthesia Plan Resuscitation Status: Full Code Anesthesia Technique: MAC Anesthesia Airway Planned: Natural Airway Monitors Used: Standard Monitors
[2021-09-26 09:36] VITALS: BMI 29.5
[2021-09-26] MEDS: Tetracaine 0.5% 4 ML BTL OD (09:56)
[2021-09-26] MEDS: Povidone-Iodine Ophth 30 ML BTL (09:57)
[2021-09-26] MEDS: Lidocaine 2% Jelly 6 ML SYR (09:58)
[2021-09-26] MEDS: Balanced Salt Soln.-PLUS 500 ML BAG (10:01)
[2021-09-26] MEDS: Lidocaine 1% Pres-Free 5 ML VIAL (10:02)
[2021-09-26 10:23] VITALS: BP 142/66; PULSE 55; RESP 18; TEMP 36.2; O2SAT 100
--- NOTE | 2021-09-26 10:23 | ROE_ITS ---
Date of service: 09/26/21 Time of Service: 10:23 Operative Note Operative Note DATE OF PROCEDURE: 09/26/21 PRE-OP DIAGNOSIS: Nuclear/posterior subcapsular cataract, right eye POST-OP DIAGNOSIS: same PROCEDURE: Cataract extraction using phacoemulsification with intraocular lens implant, right eye SURGEON: Jc Anthony ANESTHESIA TYPE: Local By Surgeon and MAC Refer to Anesthesia Record ESTIMATED BLOOD LOSS: 0 PATHOLOGY: none sent COMPLICATIONS: None Patient was transported to: same day Patient's condition: stable Implants: Manuel & Manuel/PRAVEENA Tecnis [id number] Indications: Progressive visual loss due to cataract, right eye Procedure Description: CATARACT SURGERY OPERATIVE REPORT PREOPERATIVE DIAGNOSIS: 1. Nuclear/posterior subcapsular cataract, right eye POSTOPERATIVE DIAGNOSIS: Same OPERATION: 1. Cataract extraction using phacoemulsification with posterior chamber intraocular lens implant, right eye. IOL: IOL Cloth Shearer/Model: Manuel & Manuel / PRAVEENA Tecnis [id number] IOL Power: + 14.5 diopters IOL Serial Number: [id number] Optic Diameter: 6.0mm Haptic/Overall Diameter: 13.0mm PHACO INFO: Tucker readfyurion Vision System with OZil and Active Fluidics Cumulative Dispersed Energy (CDE): 18.69 seconds SURGEON: Jc Anthony MD, IHSAN ANESTHESIA: Monitored Anesthesia Care (MAC), with local sub-tenon's anesthetic infiltration COMPLICATIONS: None SPECIMENS: None INDICATIONS FOR PROCEDURE: Patient is a 76-year-old lady with history of diminished visual acuity in both eyes secondary to the development of bilateral cataract. She has already undergone cataract surgery in her left eye and is doing well postoperatively. S he now presents for cataract surgery in her right eye. PROCEDURE: The correct surgical eye was identified and marked as the right eye and the pupil was dilated in the preoperative area using mydriatics and cycloplegics. The dilated pupil size was six-point mm. The patient elected to proceed without oral sedation. The patient was brought to the operating room where cardiopulmonary monitoring was instituted and surgical time-out was performed, confirming the correct operative eye and IOL power. Topical anesthesia was administered and ophthalmic povidone-iodine 5% was i nstilled into the conjunctival fornices. Lidocaine gel was applied to the cornea and the micky-ocular area was prepped with Betadine 10% solution and draped in the usual sterile fashion for intraocular surgery, including an aperture drape. A Tegaderm transparent film dressing was cut in half and used to cover the lashes and lid margins. Care was taken to sequester the lashes and lid margins under the Tegaderm dressing. A lid speculum was placed between the lids of the operative eye and the Tucker LuxOR Revalia operating microscope was maneuvered into position. Julio scissors were then used to make a conjunctival buttonhole approximately 6mm posterior to the limbus in the inferonasal quadrant. Blunt dissection was carried out to expose bare sclera, and a blunt-tipped sub-tenon?s anesthesia cannula was introduced and passed posteriorly along the globe where non- preserved plain lidocaine was injected into posterior sub-Tenon?s space. A sideport knife was used to make a paracentesis port inferotemporally. Intraocular phenylephrine/lidocaine was injected into the anterior chamber. The anterior chamber was filled with viscoelastic. A keratome knife was used to construct a 2-plane near-clear corneal tunnel extending 2.0mm into clear cornea superiortemporally. A flap was raised on the anterior capsule and capsulorhexis forceps were used to complete a continuous curvilinear capsulorhexis of 5.0 mm. Moderate zonular laxity was noted with a thin capsule. Balanced salt solution was then used to perform cortical cleaving hydrodissection and nuclear hydrodelineation until the lens could be freely rotated within the capsular bag. The lens nucleus was then disassembled and removed within the capsular bag and iris plane using phacoemulsification. Residual cortical material was removed using the I/A handpiece. The posterior capsule was carefully polished to remove as much residual lens epithelial cells as safely possible. The capsular bag was then inflated and the anterior chamber deepened with viscoelastic. The lens implant described above was inserted into the capsular bag using the PRAVEENA Point Lay Ira Injector. A Kuglen hook was used to dial the IOL into position. Residual viscoelastic was then removed first from posterior to the IOL, then from the anterior chamber using the I/A handpiece. The lens implant was noted to center nicely within the capsular bag. The incisions were stromally hydrated, and the anterior chamber was reformed using BSS. Posterior capsule striae were noted. Then 0.5cc of moxifloxacin 1.0mg/ml were injected into the capsular bag and anterior chamber. The incisions were checked with a Weck spear and found to be secure. Several drops of ophthalmic povidone-iodine 5% were then applied to the eye followed by two drops of Imprimis combination prednisolone/moxifloxacin/nepafenac solution. The drapes were removed and a clear plastic protective eye shield was placed over the eye. The patient was then returned to Same Day Surgery in stable condition.
--- NOTE | 2021-09-26 10:23 | W.PM.DSUDISC ---
Discharge Plan Disposition Patient Disposition: HOME Condition: Good Discharge Details Attending Provider: Jc Anthony Primary Care Provider: Aldo Kenney Home Meds and New Rx's Prescriptions: No Action (DME) blood-glucose meter [Accu-Chek Tracy Plus Meter] Misc See Rx Instructions .ROUTE .MEDSUPPLY Qty: 1 0RF Rx Instructions: As directed (DME) Accu-Chek Tracy Plus test strp Strip See Rx Instructions .ROUTE .MEDSUPPLY Qty: 10 0RF Rx Instructions: Daily (DME) lancets [Accu-Chek Softclix Lancets] Misc See Rx Instructions .ROUTE .MEDSUPPLY Qty: 100 0RF Rx Instructions: Daily lisinopril 20 mg tablet 20 mg PO DAILY Qty: 180 4RF omeprazole 40 mg capsule,delayed release(DR/EC) 40 mg PO QAM Qty: 90 3RF sertraline 50 mg tablet 50 mg PO DAILY Qty: 90 4RF Rx Instructions: 1 TAB DAILY simvastatin 20 mg tablet 20 mg PO HS Qty: 90 4RF Rx Instructions: 1 TAB HS levothyroxine 75 mcg tablet 75 mcg PO .qod Qty: 45 3RF Rx Instructions: 75 mcg alternating with 50 mcg levothyroxine. levothyroxine 50 mcg tablet 50 mcg PO .QOD Qty: 45 3RF Rx Instructions: Levothyroxine 75 mcg alternating with 50 mcg daily. Patient currently taking 75 mcg daily-this is a dosage change. metformin 500 mg tablet extended release 24 hr 500 mg PO QPM Qty: 90 0RF topiramate 100 mg tablet See Rx Instructions .ROUTE .COMPLEX Qty: 180 3RF Dose Instruction: TAKE ONE TABLET BY MOUTH TWICE A DAY Rx Instructions: TAKE ONE TABLET BY MOUTH TWICE A DAY levetiracetam 1,000 mg tablet See Rx Instructions .ROUTE .COMPLEX Qty: 360 3RF Dose Instruction: TAKE TWO TABLETS BY MOUTH TWICE A DAY Rx Instructions: TAKE TWO TABLETS BY MOUTH TWICE A DAY Discharge Instructions Stand Alone Forms: Post-op Topical Cataract, Press Ganey (DSU) Discharge Orders Discharge Orders: Discharge Order (Routine); Ordered 09/26/21 Ordered By: Jc Anthony
--- NOTE | 2021-09-26 10:33 | W.ANESPOSTOP ---
Postoperative Evaluation Date, Time and Location Date Performed: 09/26/21 Time Performed: 10:30 Patient Location: Day Surgery Unit Vital Signs Most Recent Imported Vital Signs: Most Recent Vital Signs Temp Pulse Resp BP Pulse Ox 36.2 C L 55 L 16 146/66 H 100 09/26/21 08:51 09/26/21 08:51 09/26/21 08:51 09/26/21 08:51 09/26/21 08:51 Pain Score Most Recent Pain Score: Most Recent Pain Score Pain Level 0 09/26/21 08:51 Assessment Mental Status: Awake (Alert & Oriented to Patient Baseline) Airway and Respiratory Function: Patent airway with normal (patient baseline) respiratory exam Cardiovascular Function: Hemodynamically Stable Hydration Status: Adequately Hydrated Nausea & Vomiting: No Nausea or Vomiting Pain: Pt. Denies Any Pain Peripheral Nerve Block: Patient did not receive a nerve block
== END 2021-09-26 10:50 | disposition home or self-care (01) ==
PROVIDERS: PCP Nurse Practitioner Family; Visit Provider Ophthalmology
PROC: (CPT 66984; principal; 2021-09-26 11:30)
DX: H25.11 Age-related nuclear cataract, right eye (principal); I10 Essential (primary) hypertension; G40.909 Epilepsy, unspecified, not intractable, without status epilepticus; E11.9 Type 2 diabetes mellitus without complications
CPT/HCPCS: 66984; V2632

== ENCOUNTER 2021-10-04 03:29 | Outpatient (CLI) | payer MEDICARE, SELFPAY ==
[2021-10-04 13:02] LABS: CREATININE 0.6 mg/dL (0.55-1.02)
== END 2021-10-04 03:30 | disposition home or self-care (01) ==
LOC: LOS 03:33
PROVIDERS: PCP Nurse Practitioner Family; Visit Provider Nurse Practitioner Family
DX: I10 Essential (primary) hypertension (principal)
CPT/HCPCS: 36415; 82565

== ENCOUNTER 2021-12-09 01:41 | Outpatient (CLI) | payer MEDICARE, SELFPAY ==
[2021-12-09 12:52] LABS: Anion Gap 7.3 mmol/L (3-11); BUN 11 mg/dL (7-18); CO2 24.7 mmol/L (21.0-32.0); CREATININE 0.7 mg/dL (0.55-1.02); Calcium 8.7 mg/dL (8.5-10.1); Chloride 104 mmol/L (98-107); Estimated GFR 88.47 (mL/min/1.73m2); Glucose 108 mg/dL (74-106); Potassium 3.9 mmol/L (3.5-5.1); Sodium 136 mmol/L (136-145)
== END 2021-12-09 01:42 | disposition home or self-care (01) ==
LOC: LOS 01:41
PROVIDERS: PCP Nurse Practitioner Family; Visit Provider Nurse Practitioner Family
DX: I10 Essential (primary) hypertension (principal)
CPT/HCPCS: 36415; 80048

== ENCOUNTER 2022-04-20 09:44 | Outpatient (CLI) | payer MEDICARE, SELFPAY ==
[2022-04-20 13:14] LABS: TSH 1.59 uIU/mL (0.36-3.74)
== END 2022-04-20 09:45 | disposition home or self-care (01) ==
PROVIDERS: PCP Nurse Practitioner Family; Visit Provider Nurse Practitioner Family
DX: E03.9 Hypothyroidism, unspecified (principal)
CPT/HCPCS: 36415; 84443

== ENCOUNTER 2022-06-28 03:10 | Outpatient (CLI) | payer MEDICARE, SELFPAY ==
[2022-06-28 13:03] LABS: CREATININE 0.7 mg/dL (0.55-1.02); Estimated GFR 87.92 (mL/min/1.73m2); TSH (W/Ref FT4) 2.39 uIU/mL (0.36-3.74)
[2022-06-28 13:13] LABS: COMMENT (LAB VIEW ONLY) 22.08 mg/dL; Microalb ug/mg Crea 58.4 ug/mg Cr
== END 2022-06-28 03:11 | disposition home or self-care (01) ==
LOC: LOS 03:11
PROVIDERS: PCP Nurse Practitioner Family; Visit Provider Nurse Practitioner Family
DX: I10 Essential (primary) hypertension (principal); E03.9 Hypothyroidism, unspecified; E11.9 Type 2 diabetes mellitus without complications
CPT/HCPCS: 36415; 82043; 82565; 82570; 84132; 84443

== ENCOUNTER → 2022-09-11 10:45 | Outpatient (BNVA) | payer MEDICARE, SELFPAY | PROVIDERS: PCP Nurse Practitioner Family; Visit Provider Psychiatry & Neurology Neurology | DX: I10 Essential (primary) hypertension (principal); E11.9 Type 2 diabetes mellitus without complications; G40.109 Localization-related (focal) (partial) symptomatic epilepsy and epileptic syndromes with simple partial seizures, not intractable, without status epilepticus | CPT/HCPCS: 99213 ==

== ENCOUNTER 2023-05-23 05:42 | Outpatient (CLI) | payer MEDICARE, SELFPAY ==
[2023-05-23 13:17] LABS: Hemoglobin A1C 5.8 % (<5.7)
[2023-05-23 13:28] LABS: CREATININE 0.8 mg/dL (0.55-1.02); Calculated LDL 117 mg/dL (<100); Cholesterol 201 mg/dL (<200); Estimated GFR 74.44 (mL/min/1.73m2); HDL Cholesterol 63 mg/dL (40-60); Potassium 4.1 mmol/L (3.5-5.1); TSH (W/Ref FT4) 3.76 uIU/mL (0.36-3.74); Triglyceride 106 mg/dL (<150)
[2023-05-23 14:11] LABS: FREE T4 0.84 ng/dL (0.76-1.46)
== END 2023-05-23 05:43 | disposition home or self-care (01) ==
LOC: LOS 05:42
PROVIDERS: PCP Nurse Practitioner Family; Visit Provider Nurse Practitioner Family
DX: E03.9 Hypothyroidism, unspecified (principal); I10 Essential (primary) hypertension; E11.9 Type 2 diabetes mellitus without complications; E78.5 Hyperlipidemia, unspecified
CPT/HCPCS: 36415; 80061; 82565; 83036; 84132; 84439; 84443

== ENCOUNTER 2023-08-13 20:10 | Emergency (ER) | payer MEDICARE, SELFPAY ==
[2023-08-13 20:15] VITALS: BP 177/55; PULSE 67; RESP 16; TEMP 36.3; O2SAT 97
--- NOTE | 2023-08-13 20:24 | ED.GENADUL_ITS ---
Discharge Plan Disposition Patient Disposition: Home Condition: Stable Discharge Details Clinical Impression: Tick bite Primary Care Provider: Aldo Kenney ED Provider: Bong Christiansen Home Meds and New Rx's Prescriptions: Continued topiramate 100 mg tablet See Rx Instructions .ROUTE .COMPLEX Qty: 180 3RF Dose Instruction: TAKE ONE TABLET BY MOUTH TWICE A DAY Rx Instructions: TAKE ONE TABLET BY MOUTH TWICE A DAY levothyroxine 50 mcg tablet 50 mcg PO DAILY Qty: 90 3RF (DME) blood-glucose meter [Accu-Chek Tracy Plus Meter] Misc See Rx Instructions .ROUTE .MEDSUPPLY Qty: 1 0RF Rx Instructions: As directed (DME) lancets [Accu-Chek Softclix Lancets] Misc See Rx Instructions .ROUTE .MEDSUPPLY Qty: 100 0RF Rx Instructions: Daily (DME) Accu-Chek Trayc Plus test strp Strip See Rx Instructions .ROUTE .MEDSUPPLY Qty: 100 3RF Rx Instructions: Once daily. E11.9 lisinopril 20 mg tablet 20 mg PO DAILY Qty: 180 3RF metformin 500 mg tablet extended release 24 hr 500 mg PO QPM Qty: 90 3RF omeprazole 40 mg capsule,delayed release(DR/EC) 40 mg PO QAM Qty: 90 3RF sertraline 50 mg tablet 50 mg PO DAILY Qty: 90 4RF Rx Instructions: 1 TAB DAILY simvastatin 20 mg tablet 20 mg PO HS Qty: 90 4RF Rx Instructions: 1 TAB HS levetiracetam 1,000 mg tablet See Rx Instructions .ROUTE .COMPLEX Qty: 360 3RF Dose Instruction: TAKE TWO TABLETS BY MOUTH TWICE A DAY Rx Instructions: TAKE TWO TABLETS BY MOUTH TWICE A DAY Discharge Instructions Instructions: Lyme Disease Test Additional Instructions: You were seen in the emergency department for the tick bite of your left knee. We gave you a prophylactic dose of doxycycline. We sent out a tick and Lyme panel, you should have results of these in the next few days. If you develop fevers, unilateral joint swelling, joint pains body aches, palpitations or chest pain please return for evaluation. Should the rash worsen into a pulse or become somewhat irregular and bruised you may need to start a full course of doxycycline for 14 to 21 days. Referrals: Aldo Kenney, D[employer]MER [Primary Care Provider] - Discharge Data Discharge Date/Time-TO BE ENTERED AT DEPARTURE: 08/13/23 20:57 HPI General Date/Time Provider Initiated Documentation: 08/13/23 20:18 . HPI Narrative: 78 year-old female presents to ED today by POV/ambulating with a chief complaint of tick bite to L knee with onset about 2 days ago- patient is not quite sure. Quality described as mild redness, had her family member remove the tick without issue- cannot recall whether this is a dog tick or deer tick, no radiation to fever, body aches, joint swelling, palpitations, nausea/vomiting, weakness. Severity is described as 0/10. Palliating factors include nothing specific attempted. Provoking factors include nothing specific. Events leading up to the incident/Associated Symptoms: Patient also concerned about a mild bug bite to R thigh, unknown if tick or just a mosquito/black fly. Patient not anticoagulated. Related Data Home Medications Medication Instructions Recorded Confirmed blood-glucose meter (Accu-Chek #1 ea 09/08/20 08/13/23 Tracy Plus Meter) lancets (Accu-Chek Softclix #100 ea 09/08/20 08/13/23 Lancets) blood sugar diagnostic (Accu-Chek #100 ea 01/26/22 08/13/23 Tracy Plus test strips) lisinopril 20 mg tablet 20 mg PO DAILY #180 tab-caps 06/22/22 08/13/23 topiramate 100 mg tablet See Rx Instructions .Route 09/11/22 08/13/23 .COMPLEX #180 tabs metformin 500 mg tablet,extended 500 mg PO QPM #90 tabs 12/18/22 08/13/23 release 24 hr omeprazole 40 mg capsule,delayed 40 mg PO QAM #90 tab-caps 03/02/23 08/13/23 release sertraline 50 mg tablet 50 mg PO DAILY #90 tab-caps 04/20/23 08/13/23 simvastatin 20 mg tablet 20 mg PO HS #90 tab-caps 04/20/23 08/13/23 levothyroxine 50 mcg tablet 50 mcg PO DAILY #90 tabs 05/10/23 08/13/23 levetiracetam 1,000 mg tablet See Rx Instructions .Route 07/26/23 08/13/23 .COMPLEX #360 tabs Previous Rx's Medication Instructions Recorded blood-glucose meter (Accu-Chek #1 ea 09/08/20 Tracy Plus Meter) lancets (Accu-Chek Softclix #100 ea 09/08/20 Lancets) blood sugar diagnostic (Accu-Chek #100 ea 01/26/22 Tracy Plus test strips) lisinopril 20 mg tablet 20 mg PO DAILY #180 tab-caps 06/22/22 topiramate 100 mg tablet See Rx Instructions .Route 09/11/22 .COMPLEX #180 tabs metformin 500 mg tablet,extended 500 mg PO QPM #90 tabs 12/18/22 release 24 hr omeprazole 40 mg capsule,delayed 40 mg PO QAM #90 tab-caps 03/02/23 release sertraline 50 mg tablet 50 mg PO DAILY #90 tab-caps 04/20/23 simvastatin 20 mg tablet 20 mg PO HS #90 tab-caps 04/20/23 levothyroxine 50 mcg tablet 50 mcg PO DAILY #90 tabs 05/10/23 levetiracetam 1,000 mg tablet See Rx Instructions .Route 07/26/23 .COMPLEX #360 tabs Allergies Allergy/AdvReac Type Severity Reaction Status Date / Time codeine Allergy Mild HIVES Verified 08/13/23 20:18 phenobarbital Allergy Mild itch/hives Verified 08/13/23 20:18 Sulfa (Sulfonamide Allergy Mild HIVES Verified 08/13/23 20:18 Antibiotics) General Stated Complaint: InsectBite ANTONIA: 4 Review of Systems All systems reviewed & are unremarkable except as noted in HPI and below Exam Narrative Exam Narrative: GENERAL APPEARANCE: Well-nourished, non-toxic, awake and alert, atraumatic, no acute distress. SKIN: Warm, pink, dry, very minor bug bites to L knee and R thigh, not consistent with erythema migrans, no ecchymosis. HEAD: Normocephalic, atraumatic, normal hair distribution for gender/age. EYES: Pupils PERRLA, EOMs intact without nystagmus, normal conjunctiva, no exudates on lids/lashes. ENT: Nares patent, no circumoral cyanosis, no facial swelling NECK: Supple, trachea midline, painless cervical ROM. LUNGS/CHEST: Non-labored respirations, normal A/P diameter, symmetrical expansion, no chest wall deformity HEART (CV/PV): No peripheral edema, no JVD. ABDOMEN: Soft, non-distended, no guarding. MSK: Normal ROM, no swelling/deformity to bilateral UEs or LEs, moving all extremities without weakness, no cyanosis, spine midline without tenderness, normal curvature. NEURO: Mental Status AAOx4 - alert to person, place, time, events No facial droop, no forehead involvement. Motor: No focal weakness - strength 5/5 in bilateral UEs and LEs, proximal and distal, symmetric. Sensory: sensation intact to light touch globally. Gait normal: patient ambulated without ataxia into ED room. PSYCH: euthymic, cooperative, pleasant, appropriate speech Course Vital Signs Vital signs: Vital Signs Temperature 36.3 C L 08/13/23 20:15 Pulse 67 08/13/23 20:15 Respiratory Rate 16 08/13/23 20:15 Blood Pressure 177/55 H 08/13/23 20:15 Pulse Oximetry 97 08/13/23 20:15 Temperature 36.3 C L 08/13/23 20:15 Temperature Source Temporal Artery Scan 08/13/23 20:15 Pulse 67 08/13/23 20:15 Respiratory Rate 16 08/13/23 20:15 Respiratory Effort Normal, Non-Labored 08/13/23 20:20 Blood Pressure 177/55 H 08/13/23 20:15 Blood Pressure Position Sitting 08/13/23 20:15 Pulse Oximetry 97 08/13/23 20:15 Oxygen Delivery Method Room Air 08/13/23 20:15 Oxygen Flow Rate 0 08/13/23 20:15 Pain Level 0 08/13/23 20:15 Medical Decision Making This dictation utilizes [id number] dictation software and may contain unedited grammatical errors. 78 year-old female presents to ED today by POV/ambulating with a chief complaint of tick bite to L knee with onset about 2 days ago- patient is not quite sure. Quality described as mild redness, had her family member remove the tick without issue- cannot recall whether this is a dog tick or deer tick, no radiation to fever, body aches, joint swelling, palpitations, nausea/vomiting, weakness. Severity is described as 0/10. Palliating factors include nothing specific attempted. Provoking factors include nothing specific. Events leading up to the incident/Associated Symptoms: Patient also concerned about a mild bug bite to R thigh, unknown if tick or just a mosquito/black fly. Patients' medical history: noncontributory. Family and social history: noncontributory, denies being outside in tall grass lately. Pertinent exam findings / vital signs include very minor bug bites to L knee and R thigh, not consistent with erythema migrans, no ecchymosis. Differential / pathologies of concern include tick bite, Lyme Disease or tick- borne illness, bug bite. Diagnostic studies of: -Tick & Lyme Panel. Interventions of: -200mg PO doxycycline prophylactic dose. ED Course/Assessment/Plan: 78-year-old female presents with tick bite to her left knee that does not appear infected, has no signs of erythema migrans, given prophylactic dose of doxycycline and sent out a tick and Lyme panel, counseled on strict return criteria for any worsening symptoms like polyarthralgia, body aches, weakness, nausea, palpitations or chest pain, stressed that she needs to check up on her results later this week or so and we will contact her if there are any positive results and she may need to see her regular provider for full course of doxycycline. Findings not consistent with Lyme disease, erythema migrans. Disposition of tick bite. Patient verbalized understanding of the plan and return to ED criteria and engaged in shared decision making. Medical Records Medical records reviewed: Yes I reviewed the patient's medical records. Quality:SDOH Health Related Social Needs: No Data to Display PFSH All Active Problems (Updated 08/13/23 @ 20:34 by JOHN Delgado) Tick bite (Acute) Hypothyroidism (Chronic) Essential hypertension (Acute) Hyponatremia (Acute) Hypokalemia (Acute) Hypomagnesemia (Acute) Sleep apnea (Acute) No machine use Focal epilepsy with impairment of consciousness (Acute 06/01/16) Hypertensive retinopathy of both eyes (Acute 10/05/16) [facility] Malignant neoplasm of female breast (Acute 07/12/06) left; [place] [facility] [place] Primary osteoarthritis of both knees (Chronic) Most recent Synvisc injection: 01/13/2019 Irritable colon (Acute) Diabetic retinopathy (Acute ~09/22/19) Cystocele without uterine prolapse (Acute) Diabetes mellitus (Chronic) Hyperlipidemia (Acute) Medical History Right trigger finger Surgical repair. Carpal tunnel syndrome of left wrist Surgically repaired. Surgical History Status post carpal tunnel release Status post left mastectomy Per pt. able to use left arm Status post trigger finger release Trigger Finger release (09/21/15) RIGHT THUMB/DR. SCOTT Open Carpal Tunnel release (~06/2017) RIGHT/ EGD - MAC (12/04/16) EGD - IV Sedation 2014 Breast, Mastectomy (~10/2006) LEFT Family History Mother , AGE 92 Depression Stroke Hypertension Father , AGE 62 Diabetes Heart disease Sister No problems noted. Brother , AGE 42 Non-Hodgkin lymphoma Maternal Grandfather , AGE 74 Liver disease Liver cancer Paternal Grandfather , AGE 57 Heart disease Maternal Grandmother , AGE 86 Diabetes Stroke Paternal Grandmother , AGE 90 Stroke Ovarian cancer Brother , AGE 2 Brain tumor Brother , STILLBORN No problems noted. Social History Smoking/Tobacco Use Status: Never Second Hand Exposure: Yes Smoking risk assessment performed?: Yes Alcohol Intake: never Drug use: Never Substance use type: does not use Caregiver/Support person: No Household members: family and children Housing: house Communication Needs: Corrective Lenses Do you need help understanding health information?: Rarely current occupation: Homemaker Pets and animals: Yes Pets and animals: other Details: Rabbit Sexually active: No Do you think of yourself as: straight/heterosexual Current gender identity: female What is your relationship status?: How often do you talk on the phone with friends or family?: three or more times per week How often do you get together with friends or relatives?: decline to answer How often do you attend cheondoism or yazidi services?: decline to answer Do you belong to any clubs or organized social groups?: no Panel score (0-1 are the most socially isolated patients): 1 What type of physical activity do you participate in: none Frequency: does not exercise Christiana/Restorationism: None Special christiana needs: No Seatbelt use: always Helmet use: No Drive intox or ride w/intox driver messenger: No Do you feel safe at home: Yes Do you feel safe in your relationship?: Yes
[2023-08-13] MEDS: Doxycycline Hyclate 100 MG CAP 200 MG PO (20:32)
[2023-08-15 10:53] LABS: Lyme Ab w Rflx to Lyme Confirm Negative (Negative)
[2023-08-17 12:59] LABS: Anaplasma phagocytophilum Negative (Negative); B. miyamotoi PCR Negative (Negative); Babesia divergens/MO-1 Negative (Negative); Babesia duncani Negative (Negative); Babesia microti Negative (Negative); Ehrlichia chaffeensis Negative (Negative); Ehrlichia ewingii/canis Negative (Negative); Ehrlichia muris eauclairensis Negative (Negative)
== END 2023-08-13 20:57 | disposition home or self-care (01) ==
LOC: ER 20:38
PROVIDERS: Emergency Provider Physician Assistant; PCP Nurse Practitioner Family
DX: S80.862A Insect bite (nonvenomous), left lower leg, initial encounter (principal); W57.XXXA Bitten or stung by nonvenomous insect and other nonvenomous arthropods, initial encounter
CPT/HCPCS: 36415; 87798; 99283; 86618; 99284

== ENCOUNTER → 2023-10-04 13:14 | Outpatient (BNVA) | payer MEDICARE, SELFPAY | PROVIDERS: PCP Nurse Practitioner Family; Visit Provider Psychiatry & Neurology Neurology | DX: G40.109 Localization-related (focal) (partial) symptomatic epilepsy and epileptic syndromes with simple partial seizures, not intractable, without status epilepticus (principal) | CPT/HCPCS: 99213 ==

== ENCOUNTER 2024-03-05 14:43 | Outpatient (CLI) | payer MEDICARE, SELFPAY ==
--- NOTE | 2024-03-05 14:30 | DI.RAD_ITS ---
Exam(s) XR KNEE RT 4V AP,LAT,GABBY,PAT EXAM: XR KNEE RT 4V AP,LAT,GABBY,PAT CLINICAL HISTORY: eval fx patella M25.561 PAIN RT KNEE. TECHNIQUE: 2D digital imaging was performed. COMPARISON: CR LEFT KNEE 3 VIEW COMPLETE from 12/18/2016 FINDINGS: Four views No evidence of fracture. Small joint effusion noted. There is advanced osteoarthritic degenerative change medial lateral compartments, almost [id number] and slightly more prominent in the lateral compartment. Also degenerative subarticular cysts in the lateral femoral condyle as well as marginal osteophytes. There are moderate degenerative changes in the patellofemoral compartment. No patellar displacement. Bone density age-appropriate. No osseou s lesions. IMPRESSION: Advanced osteoarthritic degenerative changes. DATA REPOSITORY: RADIATION DOSE DELIVERED:
--- NOTE | 2024-03-05 14:30 | DI.RAD_ITS ---
Exam(s) XR ELBOW RT COMPLETE EXAM: XR ELBOW RT COMPLETE CLINICAL HISTORY: nataliya fx M25.529 PAIN IN ELBOW. TECHNIQUE: 2D digital imaging was performed. COMPARISON: No exams were available for comparison FINDINGS: 3 views No evidence of acute fracture nor obvious joint effusion. There is no swelling of the olecranon burs a. Radial head and neck appear unremarkable. There are only mild degenerative changes in the joint space. Slight irregularity of the medial condyle noted which may be related to epicondylitis. Simil ar but less findings at the lateral epicondyle. Bone density normal. No osseous lesions. No radiop aque foreign bodies. IMPRESSION: Subtle evidence suggestive of medial epicondylitis. DATA REPOSITORY: RADIATION DOSE DELIVERED:
== END 2024-03-05 15:03 ==
LOC: DI 14:48
PROVIDERS: PCP Nurse Practitioner Family; Visit Provider Nurse Practitioner Family
DX: M17.11 Unilateral primary osteoarthritis, right knee; M19.021 Primary osteoarthritis, right elbow
CPT/HCPCS: 73080; 73564

== ENCOUNTER 2024-05-19 03:40 | Outpatient (CLI) | payer MEDICARE, SELFPAY ==
[2024-05-19 12:41] LABS: Anion Gap 6.4 mmol/L (3-11); BUN 13 mg/dL (7-18); CO2 26.6 mmol/L (21.0-32.0); CREATININE 0.7 mg/dL (0.55-1.02); Calculated LDL 98 mg/dL (<100); Chloride 108 mmol/L (98-107); Cholesterol 182 mg/dL (<200); Estimated GFR 86.83 (mL/min/1.73m2); Glucose 93 mg/dL (74-106); HDL Cholesterol 62 mg/dL (>or=50); Sodium 141 mmol/L (136-145); TSH (W/Ref FT4) 5.51 uIU/mL (0.36-3.74); Triglyceride 110 mg/dL (<150)
[2024-05-19 13:03] LABS: FREE T4 0.86 ng/dL (0.76-1.46)
== END 2024-05-19 03:41 | disposition home or self-care (01) ==
LOC: LOS 03:40
PROVIDERS: PCP Nurse Practitioner Family; Visit Provider Nurse Practitioner Family
DX: E03.9 Hypothyroidism, unspecified (principal); Z13.1 Encounter for screening for diabetes mellitus; Z13.6 Encounter for screening for cardiovascular disorders
CPT/HCPCS: 36415; 80048; 80061; 84439; 84443

== ENCOUNTER 2024-07-09 11:41 | Emergency (ER) | payer MEDICARE, SELFPAY ==
[2024-07-09 11:43] VITALS: BP 164/80; PULSE 62; RESP 18; TEMP 36.8; O2SAT 98
--- NOTE | 2024-07-09 11:58 | W.ED.GENAD ---
Discharge Plan Disposition Patient Disposition: Home Condition: Stable Discharge Details Clinical Impression: Tick bite Primary Care Provider: Aldo Kenney ED Provider: Tito Arroyo Home Meds and New Rx's Prescriptions: Continued sertraline 50 mg tablet 50 mg PO DAILY Qty: 90 4RF Rx Instructions: 1 TAB DAILY levothyroxine 50 mcg tablet 50 mcg PO DAILY Qty: 90 3RF (DME) blood-glucose meter [Accu-Chek Tracy Plus Meter] Misc See Rx Instructions .ROUTE .MEDSUPPLY Qty: 1 0RF Rx Instructions: As directed (DME) lancets [Accu-Chek Softclix Lancets] Misc See Rx Instructions .ROUTE .MEDSUPPLY Qty: 100 0RF Rx Instructions: Daily (DME) Accu-Chek Tracy Plus test strp Strip See Rx Instructions .ROUTE .MEDSUPPLY Qty: 100 3RF Rx Instructions: Once daily. E11.9 lisinopril 20 mg tablet 20 mg PO DAILY Qty: 180 3RF metformin 500 mg tablet extended release 24 hr 500 mg PO QPM Qty: 90 3RF omeprazole 40 mg capsule,delayed release(DR/EC) 40 mg PO QAM Qty: 90 3RF simvastatin 20 mg tablet 20 mg PO HS Qty: 90 4RF Rx Instructions: 1 TAB HS cetirizine [Allergy Relief (cetirizine)] 10 mg tablet 10 mg PO DAILY PRN topiramate 100 mg tablet See Rx Instructions .ROUTE .COMPLEX Qty: 180 3RF Dose Instruction: TAKE ONE TABLET BY MOUTH TWICE A DAY Rx Instructions: TAKE ONE TABLET BY MOUTH TWICE A DAY levetiracetam 1,000 mg tablet See Rx Instructions .ROUTE .COMPLEX Qty: 360 3RF Dose Instruction: TAKE TWO TABLETS BY MOUTH TWICE A DAY Rx Instructions: TAKE TWO TABLETS BY MOUTH TWICE A DAY Discharge Instructions Additional Instructions: Given the tach was on for less than 24 hours prophylactic antibiotics are not indicated. Follow-up with your primary care provider as needed or if you develop symptoms such as joint aches. If you feel more ill or have new symptoms such as high fevers return to the emergency department for reevaluation. HPI General Mode of arrival: ambulatory. Date/Time Provider Initiated Documentation: 07/09/24 11:46. Limitations to Documentation: no limitations. Information obtained by: patient. History of Present Illness 79 year old F presents to the emergency department with the chief complaint of tick removed from abdomen last night, described as mild, and is localized to the abdomen. Patient reports no radiation. Patient started experiencing this day(s) (1) and it has been now resolved. No relieving factors improve symptom(s), No exacerbating factors reported . Patient notes no other symptoms.. Patient did receive the following treatments prior to arrival, none Related Data Home Medications ?Medication ?Instructions ?Recorded ?Confirmed blood-glucose meter (Accu-Chek #1 ea 09/08/20 05/14/24 Tracy Plus Meter) lancets (Accu-Chek Softclix #100 ea 09/08/20 05/14/24 Lancets) blood sugar diagnostic (Accu-Chek #100 ea 01/26/22 05/14/24 Tracy Plus test strips) lisinopril 20 mg tablet 20 mg PO DAILY #180 tab-caps 09/10/23 05/14/24 metformin 500 mg tablet,extended 500 mg PO QPM #90 tabs 12/12/23 05/14/24 release 24 hr omeprazole 40 mg capsule,delayed 40 mg PO QAM #90 tab-caps 02/08/24 05/14/24 release simvastatin 20 mg tablet 20 mg PO HS #90 tab-caps 04/14/24 05/14/24 levothyroxine 50 mcg tablet 50 mcg PO DAILY #90 tabs 05/14/24 05/14/24 sertraline 50 mg tablet 50 mg PO DAILY #90 tab-caps 05/14/24 05/14/24 cetirizine 10 mg tablet (Allergy 10 mg PO DAILY PRN 05/21/24 Relief (cetirizine)) levetiracetam 1,000 mg tablet See Rx Instructions .Route 07/08/24 .COMPLEX #360 tabs topiramate 100 mg tablet See Rx Instructions .Route 07/08/24 .COMPLEX #180 tabs Previous Rx's ?Medication ?Instructions ?Recorded blood-glucose meter (Accu-Chek #1 ea 09/08/20 Tracy Plus Meter) lancets (Accu-Chek Softclix #100 ea 09/08/20 Lancets) blood sugar diagnostic (Accu-Chek #100 ea 01/26/22 Tracy Plus test strips) lisinopril 20 mg tablet 20 mg PO DAILY #180 tab-caps 09/10/23 metformin 500 mg tablet,extended 500 mg PO QPM #90 tabs 12/12/23 release 24 hr omeprazole 40 mg capsule,delayed 40 mg PO QAM #90 tab-caps 02/08/24 release simvastatin 20 mg tablet 20 mg PO HS #90 tab-caps 04/14/24 levothyroxine 50 mcg tablet 50 mcg PO DAILY #90 tabs 05/14/24 sertraline 50 mg tablet 50 mg PO DAILY #90 tab-caps 05/14/24 levetiracetam 1,000 mg tablet See Rx Instructions .Route 07/08/24 .COMPLEX #360 tabs topiramate 100 mg tablet See Rx Instructions .Route 07/08/24 .COMPLEX #180 tabs Allergies Allergy/AdvReac Type Severity Reaction Status Date / Time codeine Allergy Mild HIVES Verified 07/09/24 11:45 phenobarbital Allergy Mild itch/hives Verified 07/09/24 11:45 Sulfa (Sulfonamide Allergy Mild HIVES Verified 07/09/24 11:45 Antibiotics) General Stated Complaint: InsectBite ANTONIA: 5 Review of Systems All systems reviewed & are unremarkable except as noted in HPI and below Constitutional Constitutional: Denies chills, Denies fever(s) and Denies weakness Cardiovascular Cardiovascular: Denies chest pain and Denies dyspnea Respiratory Respiratory: Denies cough and Denies dyspnea Gastrointestinal Gastrointestinal: Denies abdominal pain, Denies nausea and Denies vomiting Neurologic Neurologic: Denies weakness Psychiatric Psychiatric: Denies depression Exam Const General: no acute distress Orientation: alert HENKY Head: normal to inspection Ears: external ears normal General nose exam: external nose normal Mouth: moist mucous membranes Eyes General: appearance normal, both eyes and all related structures Neck Neck: normal visual inspection Resp Effort & Inspection: normal respiratory effort and able to speak in complete sentences Cardio Rate: regular rate Neuro General: patient alert and patient oriented x3 Extrem General: normal to inspection Psych Mental Status: mental status grossly normal Course Vital Signs Vital signs: Vital Signs Temperature 36.8 C 07/09/24 11:43 Pulse 62 07/09/24 11:43 Respiratory Rate 18 07/09/24 11:43 Blood Pressure 164/80 H 07/09/24 11:43 Pulse Oximetry 98 07/09/24 11:43 Temperature 36.8 C 07/09/24 11:43 Temperature Source Oral 07/09/24 11:43 Pulse 62 07/09/24 11:43 Respiratory Rate 18 07/09/24 11:43 Blood Pressure 164/80 H 07/09/24 11:43 Blood Pressure Position Sitting 07/09/24 11:43 Pulse Oximetry 98 07/09/24 11:43 Oxygen Delivery Method Room Air 07/09/24 11:43 Oxygen Flow Rate 0 07/09/24 11:43 Pain Level 0 07/09/24 11:43 Medical Decision Making 79-year-old female states a tick on her abdomen that her nephew removed last night. She says the tick was not engorged and came off easily. She thinks it was on for less than 12 hours. She otherwise feels well without any complaints. She has very mild erythema that is 2 x 2 cm in the area where the tick was removed. There is no bull's-eye. Given the tick was on for less than 24 hours do not feel prophylactic antibiotics are indicated. She will follow-up with her PCP if needed and return Quality:SDOH Health Related Social Needs: No Data to Display PFSH All Active Problems (Updated 07/09/24 @ 12:01 by Tito Arroyo MD) Tick bite (Acute) Hypothyroidism (Chronic) Essential hypertension (Acute) Hyponatremia (Acute) Hypokalemia (Acute) Hypomagnesemia (Acute) Sleep apnea (Acute) No machine use Focal epilepsy with impairment of consciousness (Acute 06/01/16) Hypertensive retinopathy of both eyes (Acute 10/05/16) [facility] Malignant neoplasm of female breast (Acute 07/12/06) left; partial mastectomy at [facility] [place]; invasive ductal CA Primary osteoarthritis of both knees (Chronic) Most recent Synvisc injection: 01/13/2019 Irritable colon (Acute) Diabetic retinopathy (Acute ~09/22/19) Cystocele without uterine prolapse (Acute) Donut pessary Diabetes mellitus (Chronic) Hyperlipidemia (Acute) Medical History Right trigger finger Surgical repair. Carpal tunnel syndrome of left wrist Surgically repaired. Surgical History Status post carpal tunnel release Status post left mastectomy Per pt. able to use left arm Status post trigger finger release Trigger Finger release (09/21/15) RIGHT THUMB/DR. SCOTT Open Carpal Tunnel release (~06/2017) RIGHT/ EGD - MAC (12/04/16) EGD - IV Sedation 2015 Breast, Mastectomy (~10/2006) LEFT Family History Mother , AGE 92 Depression Stroke Hypertension Father , AGE 62 Diabetes Heart disease Sister No problems noted. Brother , AGE 42 Non-Hodgkin lymphoma Maternal Grandfather , AGE 74 Liver disease Liver cancer Paternal Grandfather , AGE 57 Heart disease Maternal Grandmother , AGE 86 Diabetes Stroke Paternal Grandmother , AGE 90 Stroke Ovarian cancer Brother , AGE 2 Brain tumor Brother , STILLBORN No problems noted. Social History Smoking/Tobacco Use Status: Never Second Hand Exposure: Yes Smoking risk assessment performed?: Yes Alcohol Intake: never Drug use: Never Substance use type: does not use Caregiver/Support person: No Household members: family and children Housing: house Communication Needs: Corrective Lenses Do you need help understanding health information?: Rarely current occupation: Homemaker Pets and animals: Yes Pets and animals: other Details: Rabbit Sexually active: No Do you think of yourself as: straight/heterosexual Current gender identity: female What is your relationship status?: How often do you talk on the phone with friends or family?: three or more times per week How often do you get together with friends or relatives?: decline to answer How often do you attend restorationist or yarsani services?: decline to answer Do you belong to any clubs or organized social groups?: no Panel score (0-1 are the most socially isolated patients): 1 What type of physical activity do you participate in: none Frequency: does not exercise Christiana/Baptism: None Special christiana needs: No Seatbelt use: always Helmet use: No Drive intox or ride w/intox skip load driver: No Do you feel safe at home: Yes Do you feel safe in your relationship?: Yes
== END 2024-07-09 12:14 | disposition home or self-care (01) ==
PROVIDERS: Emergency Provider Emergency Medicine; PCP Nurse Practitioner Family
DX: S30.861A Insect bite (nonvenomous) of abdominal wall, initial encounter (principal); W57.XXXA Bitten or stung by nonvenomous insect and other nonvenomous arthropods, initial encounter
CPT/HCPCS: 99281; 99282

== ENCOUNTER → 2024-10-07 13:31 | Outpatient (BNVA) | payer MEDICARE, SELFPAY | PROVIDERS: PCP Nurse Practitioner Family; Visit Provider Psychiatry & Neurology Neurology | DX: G40.109 Localization-related (focal) (partial) symptomatic epilepsy and epileptic syndromes with simple partial seizures, not intractable, without status epilepticus (principal); E11.9 Type 2 diabetes mellitus without complications; Z79.84 Long term (current) use of oral hypoglycemic drugs | CPT/HCPCS: 99213 ==